=== PATIENT | female | born 1970 | race Caucasian/White ===

== ENCOUNTER 2022-11-22 14:19 | Outpatient (CLI) | payer BC, SELFPAY | END 2022-11-22 14:20 | disposition home or self-care (01) | LOC: FRMREF 14:20 | PROVIDERS: PCP Physician Assistant Medical; Visit Provider Physician Assistant Medical | DX: N92.0 Excessive and frequent menstruation with regular cycle (principal); E05.90 Thyrotoxicosis, unspecified without thyrotoxic crisis or storm; Z01.818 Encounter for other preprocedural examination | CPT/HCPCS: 84443 ==

== ENCOUNTER 2022-12-12 06:08 | Day surgery (SDC) | payer BC, SELFPAY ==
[2022-12-12] MEDS: LACTATED RINGERS 1000 ML 1,000 ML 100 ML IV (06:20)
[2022-12-12 06:37] LABS: Ur HCG Qualitative* Negative (Negative)
[2022-12-12 06:39] VITALS: BP 117/81; PULSE 71; RESP 16; TEMP 37; O2SAT 98
[2022-12-12 06:41] VITALS: BMI 27.9
[2022-12-12] MEDS: LIDOCAINE 1% MDV 10 ML INJECTION (08:00)
[2022-12-12] MEDS: BUPIVACAINE 0.25% 30 ML 10 ML INJECTION (08:00)
--- NOTE | 2022-12-12 08:24 | W.PM.GYNPROC ---
Procedure Note Date of procedure: 12/12/22 Pre-op diagnosis: Menorrhagia with irregular cycle Post-op diagnosis: same Procedure: Hysteroscopy D&C Jazmyn endometrial ablation Anesthesia: MAC and local (Paracervical block) Complications: None Surgeon: Soniya Garcia MD Estimated blood loss (mL): 5 Urine Output (mL): 200 Pathology: specimen obtained, sent to pathology (Endometrial curettings) Condition: stable Disposition: same day Findings: Small uterine cavity. Thin endometrial lining. Procedure Description: After obtaining informed consent, the patient was taken to the operating room where she received monitored anesthesia care. She was prepared and draped in the normal sterile fashion, in the dorsal lithotomy position. An open-sided bivalve speculum was introduced into the vagina and the cervix visualized. The anterior lip of the cervix was grasped with a single-tooth tenaculum for traction. A paracervical block was then administered using a total of 20 mL of a 50/50 mixture of 0.25% Marcaine and 1% lidocaine plain. The uterus was gently sounded. Sound length was 6.5 cm. The cervix length was determined to be 2.5 cm using Hegar dilators, yielding a uterine cavity length of 4 cm. The cervix was gently dilated to a #6 Hegar dilator. A hysteroscope was then advanced under direct visualization through the cervix into the uterine cavity. Sterile normal saline was used as distending medium. The uterine cavity was carefully inspected with the findings noted above. The hysteroscope was then removed. The endometrial lining was then sharply curetted. The Jazmyn device was then set to a cavity length of 4 cm, inserted through the cervical os into the uterine cavity to the level of the fundus, and deployed. The device was sealed against the cervix. The array was found to be incompletely deployed, presumably due to the small uterine cavity size. The array was slightly manipulated, and still the line on the device indicated that the device was not fully deployed. I removed the device, and then reinserted it and sealed it again against the cervix. I checked with the device territory sales representative and enrollment management coordinator, and was informed that the device would still be safe in functional to use for the ablation. The safety checks were then passed x2 and the 2-minute treatment cycle initiated. During the treatment cycle, I could visualize the distal aspect of the cervical sealing balloon. Following completion of the treatment cycle, the Jazmyn device was removed. The hysteroscope was advanced again into the uterine cavity and the uterine cavity inspected. A good ablation was noted from the internal os to fundus and to the cornua bilaterally. There was some ablation of the endocervix slightly distal to the internal cervical os. Pictures were taken for documentation purposes. The hysteroscope was removed. The tenaculum was removed. All instruments were then removed. Toradol 30 mg IV was administered by the MANAGER CARDIAC. The patient tolerated the procedure well. Sponge, lap, needle, and instrument counts reported as correct x2. Postoperative debrief was done, confirming the procedure done and the pathology specimen to be sent. The patient was taken to the recovery room awake in a stable condition.
[2022-12-12 08:29] VITALS: BP 112/70; PULSE 68; RESP 16; TEMP 36.6; O2SAT 97
--- NOTE | 2022-12-12 08:29 | W.ANESCHARGE ---
Anesthesia Charges Start Date/Time Anesthesia Start Date: 12/12/22 Anesthesia Start Time: 07:35 Stop Date/Time Anesthesia Stop Date: 12/12/22 Anesthesia Stop Time: 08:28
--- NOTE | 2022-12-12 08:41 | W.ANESCHARGE ---
Anesthesia Charges Start Date/Time Anesthesia Start Date: 12/12/22 Anesthesia Start Time: 07:35 Stop Date/Time Anesthesia Stop Date: 12/12/22 Anesthesia Stop Time: 08:28
[2022-12-12 09:01] VITALS: BP 124/78; PULSE 72; RESP 16; TEMP 36.8; O2SAT 100
== END 2022-12-12 09:17 | disposition home or self-care (01) ==
PROVIDERS: PCP Physician Assistant Medical; Visit Provider Obstetrics & Gynecology
PROC: 0UF98ZZ Fragmentation in Uterus, Via Natural or Artificial Opening Endoscopic (ICD-10-PCS; CPT 58563; principal; 2022-12-12 07:15)
DX: N92.1 Excessive and frequent menstruation with irregular cycle (principal); N84.0 Polyp of corpus uteri
CPT/HCPCS: 58563; 81025; 88305; 952; J0665; J1100; J1885; J2250; J2405; J2704; J3010; J7120

== ENCOUNTER 2023-10-21 14:14 | Emergency (ER) | payer BC, SELFPAY ==
[2023-10-21] VITALS (8 sets, daily range): BP systolic 116–148; BP diastolic 69–78; PULSE 73–125; RESP 16; TEMP 36.1; O2SAT 97–99; BMI 29.8
[2023-10-21] MEDS: 0.9 % SODIUM CHLORIDE 1000 ml 1,000 ML IV (14:50)
[2023-10-21] MEDS: EPINEPHrine 0.3 MG PEN IM (14:50)
[2023-10-21] MEDS: METHYLPREDNISOLONE SOD SUCC 62.5 MG/ML (125) 125 MG IVP (14:52)
[2023-10-21] MEDS: FAMOTIDINE 10 MG/ML inj 20 MG IVP (14:55)
--- OUTSIDE RECORDS SUMMARY | 2023-10-21 15:01 | XMS_ITS | Clinical Summary ---
Author Organization [facility] Address [address] [place] [address] Care Team Providers Care Animal Breeder Name Role Phone Mariangel Dickens PA-C Primary Care Provi chato Allergies Active Allergy Reactions Criticality Noted Date Comments Sulfa Antibiotics 03/25/2006 Medications Medication Sig Dispensed Refills Start Date End Date Status cholecalciferol (VITAMIN D) 1000 UNIT tablet Take 1 tablet (1,000 Units) by mouth daily 100 tablet 3 01/18/2015 Active Probiotic Product (ACIDOPHILUS PROBIOTIC BLEND) CAPS 01/18/2015 Act indio magnesium oxide (MAG-OX) 400 (241.3 MG) MG tablet Take 1 tablet (400 mg) by mouth daily 60 tablet 3 01/18/2015 Active fluticasone (FLONASE) 50 MCG/ACT nasal sprayIndications:Othe r diseases of nasal cavity and sinuses(478.19) Rena Lara 1-2 sprays into both nostrils daily 16 g 7 10/01/2015 Active Ibuprofen (ADVIL PO) Acti ve loratadine-pseudoePHE Drine (CLARITIN-D 24-HOUR) 10-240 MG per tablet Take 1 tablet by mouth daily Active loratadine (CLARITIN) 10 MG tablet Take 10 mg by mouth daily Active norethindrone-ethinyl estradiol (03/17) 1-20 MG-MCG per tabletIndications:Enc ounter for initial prescription of contraceptive pills Take 1 tablet by mouth daily 90 tablet 3 09/01/2016 Active Active Problems Patient Care Coordination No te Formatting of this note migh t be different from the original. [email or web address] Problem Noted Date Diagnosed Date Headache 06/08/2011 Overview: Problem list name updated by automated process. Provider to review and confirm Problem list name updated by automated process. Provider to review Contraception 04/05/2011 Generalized anxiety disorder 03/07/2011 Anxiety 03/07/2011 CARDIOVASCULAR SCREENING; LDL GOAL LESS THAN 160 02/18/2010 Overview: Collins 10-year CHD Risk Score: 1% (0 Total Points) Values used to calculate score: Age: 39 years -- Points: 0 Total Cholesterol: N/A mg/dL -- Points: 0 HDL Cholesterol: N/A mg/dL -- Points: 0 Systolic BP (untreated): 90 mmHg -- Points: 0 Rosacea 02/18/2010 Allergic rhinitis 03/07/2007 Overview: Problem list name updated by automated process. Provider to review Resolved Problems Problem Noted Date Diagnosed Date Resolved Date Cervical radiculopathy 11/15/201412/31 Left shoulder pain 11/15/2014 5 Family History Relation Status Comments Brother 1 Alive Brother 2 Alive Brother 3 Alive Father Alive Mother Alive Sister Alive Son 1 Alive Son 2 Alive Son 3 Alive Son 4 Alive Social History Tobacco Use Types Packs/Day Years Used Date Smoking Tobacco: Never Smokeless Tobacco: Never Tobacco Cessation:Counseling Given: No Alcohol Use Standard Drinks/Week Comments Yes 0 (1 standard drink = 0.6 oz pur e alcohol) rarely Adolescent Education Answer Date Record ed Getting School Help Needed Not on file 12/03 Sex and Gender Information Value Date Recorded Sex Assigned at Not on file Gender Identity Not on file Sexual Orientation Not on file Last Filed Vital Signs Vital Sign Reading Time Taken Comments Blood Pressure 98/76 09/01/2016 1:56 PM CDT Pulse 81 09/01/2016 1:56 PM CDT Temperature 36.8 ??C (98.2 ??F) 09/01/2016 1:56 PM CD T Respiratory Rate 14 12/21/2017 11:36 AM CDT Oxygen Saturation 100% 09/01/2016 1:56 PM CDT Inhaled Oxygen Concentration - - Weight 79.4 kg (175 lb) 12/21/2017 11:36 AM CDT Height 170.2 cm (5' 7) 12/21/2017 11:36 AM CDT Body Mass Index 27.41 12/21/2017 11:36 AM CDT Plan of Treatment Not on file Care Teams Animal Breeder Relationship Specialty Start Date End Date Mariangel Dickens PA-C PCP - General Physician Rehabilitation Center Manager 01/18/15
--- OUTSIDE RECORDS SUMMARY | 2023-10-21 15:01 | XMS_ITS | Encounter Summary ---
Author Organization [facility] Address [address] [place] [address] Care Team Providers Care Dairy Store Manager Name Role Phone Te Jorge Primary Care Provider Unavailabl e Encounter Details Date Type Department Care Team (Latest Contact Info) Description 02/27/1994 [place] [address] [place] [address] Social History Tobacco Use Types Packs/Day Years Used Date Smoking Tobacco: Never Assessed Sex and Gender Information Value Date Recorded Sex Assigned at Not on file Gender Identity Not on file Sexual Orientation Not on file documented as of this encounter Plan of Treatment Not on file documented as of this encounter Visit Diagnoses Not on filedocumented in this encounter Care Teams Dairy Store Manager Relationship Specialty Start Date End Date Te Jorge PCP - General 05/29/10 documented as of this encounter
--- OUTSIDE RECORDS SUMMARY | 2023-10-21 15:01 | XMS_ITS | Encounter Summary ---
Author Organization [facility] Address [address] [place] [address]. [place] [address] Care Team Providers Care Home Day Care Provider Name Role Phone Min Napoles PA-C Primary Care Provider OestrMariangel aguilar PA-C Primary Care Provi chato Mariangel Dickens PA-C Unavailable [phone] Mariangel Dickens PA-C Unavailable [phone] Reason for Visit * Reason Onset Date Comments MyChart Communication 02/15/2012 Encounter Details Date Type Department Care Team (Latest Contact Info) Description 02/15/2012 MyC Medical Advice [address] [address] Min Napoles PA-C [address] [address] MyChart Communication Social History Tobacco Use Types Packs/Day Years Used Date Smoking Tobacco: Never Smokeless Tobacco: Never Alcohol Use Standard Drinks/Week Comments Yes 0 (1 standard drink = 0.6 oz pur e alcohol) Sex and Gender Information Value Date Recorded Sex Assigned at Not on file Gender Identity Not on file Sexual Orientation Not on file documented as of this encounter Miscellaneous Notes * Telephone Encounter - Jessica Cartwright - 02/21/2012 1:25 PM CST Pt did start cycle, please see most recent SPEEDELO message. Message to Ashley Dony TOMASZ Cartwright, RN GROWER * Telephone Encounter - Soraya Washington - 02/16/2012 9:36 AM CST Reviewed MY Chart with clinic provider. Defer to PCP for BC restart. Message handled by Nurse Triage with [facility] - provider name: Parag Washington RN. . GROWER documented in this encounter Plan of Treatment Not on file documented as of this encounter Visit Diagnoses Not on filedocumented in this encounter Care Teams Home Day Care Provider Relationship Specialty Start Date End Date Min Napoles PA-C [address] [address] PCP - General Family Practice 10/18/10 04/03/13 Mariangel Dickens PA-C [address] [address] PCP - General Physician Pipe Washer 01/18/15 Mariangel Dickens PA-C [address] [place] [address] PCP - Assigned PCP 09/03/16 04/30/18 Mariangel Dickens PA-C [address] [place] [address] Assigned PCP 09/03/16 09/06/19 documented as of this encounter
--- OUTSIDE RECORDS SUMMARY | 2023-10-21 15:01 | XMS_ITS | Encounter Summary ---
Author Organization [facility] Address [address] [place] [address] Care Team Providers Care Paralegals Name Role Phone Te Jorge Primary Care Provider Unavailabl e Encounter Details Date Type Department Care Team (Latest Contact Info) Description 09/13/1995 [place] [address] [place] [address] Social History Tobacco Use Types Packs/Day Years Used Date Smoking Tobacco: Never Assessed Sex and Gender Information Value Date Recorded Sex Assigned at Not on file Gender Identity Not on file Sexual Orientation Not on file documented as of this encounter Plan of Treatment Not on file documented as of this encounter Visit Diagnoses Not on filedocumented in this encounter Care Teams Paralegals Relationship Specialty Start Date End Date Te Jorge PCP - General 05/29/10 documented as of this encounter
--- OUTSIDE RECORDS SUMMARY | 2023-10-21 15:01 | XMS_ITS | Referral Summary ---
Author Organization [facility] Address [address] [place] [address] Care Team Providers Care Chemical Process Analyst Name Role Phone Mariangel Dickens PA-C Primary [...] r diseases of nasal cavity and sinuses(478.19) [place] 1-2 sprays into both nostrils daily 16 [...] migh t be different from the original. [email or web address] Problem Noted Date Diagnosed Date Headache 06/08/2011 Overview: Problem list name updated by automated process. Provider to review and confirm Problem list name updated by automated process. Provider to review Contraception 04/05/2011 Generalized anxiety disorder 03/07/2011 Anxiety 03/07/2011 CARDIOVASCULAR SCREENING; LDL GOAL LESS THAN 160 02/18/2010 Overview: Calvin 10-year CHD Risk Score: 1% (0 Total [...] radiculopathy 11/15/201412/31 Left shoulder pain 11/15/2014 5 Social History Tobacco Use Types Packs/Day Years [...] of Treatment Not on file Care Teams Chemical Process Analyst Relationship Specialty Start Date End Date Mariangel Dickens PA-C PCP - General Physician Instrument Assembler 01/18/15
--- OUTSIDE RECORDS SUMMARY | 2023-10-21 15:01 | XMS_ITS | Encounter Summary ---
Author Organization [facility] Address [address] [place] [address]. [place] [address] Care Team Providers Care Stone Polisher Hand Name Role Phone Min Napoles PA-C Primary Care Provider Mariangel Dickens PA-C Primary Care Provi chato Mariangel Dickens PA-C Unavailable [phone] Mariangel Dickens PA-C Unavailable [phone] Encounter Details Date Type Department Care Team (Late st Contact Info) Description 02/12/2012 MyC Medical Advice Initial Department Roger Balbuena Social History Tobacco Use Types Packs/Day Years [...] on filedocumented in this encounter Care Teams Stone Polisher Hand Relationship Specialty Start Date End Date Min Napoles PA-C [address] [address] PCP - General Family Practice 10/18/10 2 Mariangel Dickens PA-C [address] [address] PCP - General Physician Tooth Cutter Contact Wheel 01/18/15 Mariangel Dickens PA-C [address] [facility] [address] [place] [address] PCP - Assigned PCP 09/03/16 04/30/18 Mariangel Dickens PA-C [address] [facility] [address] [place] [address] Assigned PCP 09/03/16 09/06/19 documented as of this encounter
--- OUTSIDE RECORDS SUMMARY | 2023-10-21 15:01 | XMS_ITS | Encounter Summary ---
Author Organization [facility] Address [address] [place] [address] Care Team Providers Care Inside Account Executive Name Role Phone Min Napoles PA-C Primary Care Provider Mariangel Dickens PA-C Primary Care Provi chato Mariangel Dickens PA-C Unavailable [phone] Mariangel Dickens PA-C Unavailable [phone] Encounter Details Date Type Department Care Team (Late st Contact Info) Description 10/31/[address] [address] [facility] Social History Tobacco Use Types Packs/Day Years [...] on filedocumented in this encounter Care Teams Inside Account Executive Relationship Specialty Start Date End Date Min Napoles PA-C [address] [address] PCP - General Family Practice 10/18/10 04/03/13 Mariangel Dickens PA-C [address] [address] PCP - General Physician Javascript Software Engineer 01/18/15 Mariangel Dickens PA-C [address] [facility] [address] [place] [address] PCP - Assigned PCP 09/03/16 04/30/18 Mariangel Dickens PA-C [address] [facility] [address] [place] [address] Assigned PCP 09/03/16 09/06/19 documented as of this encounter
--- OUTSIDE RECORDS SUMMARY | 2023-10-21 15:01 | XMS_ITS | Clinical Summary ---
Author Organization [facility] Address [place], [place] [address] Care Team Providers Care Molecular Physicist Name Role Phone Clinic, No Pcp Or Primary Care Provider Unavaila ble Allergies Active Allergy Reactions Criticality Noted Date Comments Sulfa (Sulfonamide Antibiotics) Nausea And Vomiting 12/16/2016 Medications No known medications Active Problems Problem Noted Date Diagnosed Date Anxiety 03/07/2011 Allergic rhinitis 03/07/2007 Overview: Overview: Problem list name updated by automated process. Provider to review Social History Tobacco Use Types Packs/Day Years Used Date Smoking Tobacco: Former Smokeless Tobacco: Never Alcohol Use Standard Drinks/Week Comments No 0 (1 standard drink = 0.6 oz pur e alcohol) Sex and Gender Information Value Date Recorded Sex Assigned at Not on file Gender Identity Not on file Sexual Orientation Not on file Obstetrics History Last Filed Vital Signs Vital Sign Reading Time Taken Comments Blood Pressure 126/80 01/15/2017 11:36 AM PERIOPERATIVE MANAGER Pulse 76 01/15/2017 11:36 AM PERIOPERATIVE MANAGER Temperature 37.2 ??C (98.9 ??F) 12/16/2016 3:41 PM CD T Respiratory Rate 18 12/16/2016 3:41 PM CDT Oxygen Saturation 99% 12/16/2016 3:41 PM CDT RA Inhaled Oxygen Concentration - - Weight 79 kg (174 lb 1.6 oz) 01/15/2017 11:36 AM PERIOPERATIVE MANAGER Height 170.2 cm (5' 7) 01/15/2017 11:36 AM PERIOPERATIVE MANAGER Body Mass Index 27.27 01/15/2017 11:36 AM PERIOPERATIVE MANAGER Plan of Treatment Health Maintenance Due Date Last Done Comments Tdap 1980 Depression screening for age 12+ 1981 Tetanus booster 1989 Pap test for age 21-65 1990 Colonoscopy through age 75 2014 Lipids for age 45-75 2014 Mammogram for age 45-75 2014 BMI (ht and wt on same day) for age 18+ 01/15/2018 01/15/2017, 12/16/2016 Zoster (shingles) series for age 50+ (1 of 2) 10/21/2019 COVID-19 vaccine series (2022-24 season) 2022 Influenza for age 50-64 10/28/2023 HIV for age 15-65 Completed 12/16/2016 Hepatitis C screening for ag e 18-79 Completed 12/16/2016 Pneumococcal series for age 6-64 Aged Out No longer eligible b ased on patient's age to complete this topic Procedures Procedure Name Priority Date/Time Associated Diagnosis Comments ANTI HIV 1/2 Patient wait 12/16/2016 4:35 PM CDT Fever, unspecified fever cause ANTI HCV Patient wait 12/16/2016 4:35 PM CDT Fever, unspecified fever cause from Last 3 Months or Most Recently Relevant to Health Maintenance Results * ANTI HCV (12/16/2016 4:35 PM CDT) [facility] HEPATITIS C ANTIBODY Non-Reacti ve Non-Reacti ve 12/17/2016 6:54 PM CDT [facility] Blood BLOOD SPECIMEN / Unknown Venipuncture / Unknown 12/16/2016 4:35 PM CDT 12/16/2016 4:35 PM CDT Narrative [facility] - 12/17/2016 6:54 PM CDT Antibodies to HCV not detected; does not exclude the possibility of exposure to HCV. Shawnee Leroy MD SEND OUTS [facility] [address] [place] [address], [place] * ANTI HIV 1/2 (12/16/2016 4:35 PM CDT) HIV-1/HIV-2 ANTIBODY Non-Reacti ve Non-Reacti ve 12/17/2016 6:58 PM CDT [facility] Blood BLOOD SPECIMEN / Unknown Venipuncture / Unknown 12/16/2016 4:35 PM CDT 12/16/2016 4:35 PM CDT Narrative [facility] - 12/17/2016 6:58 PM CDT HIV-1 p24 and HIV-1/HIV-2 Ab not detected Shawnee Leroy MD SEND OUTS [facility] [address] [place] [address], from Last 3 Months or Most Recently Relevant to Health Maintenance Care Teams Molecular Physicist Relationship Specialty Start Date End Date Clinic, No Pcp Or . PCP - General 12/16/16
--- OUTSIDE RECORDS SUMMARY | 2023-10-21 15:01 | XMS_ITS | Encounter Summary ---
Author Organization [facility] Address [address] [place] [address] Care Team Providers Care Returning Officer Name Role Phone Te Jorge Primary Care Provider Unavailabl e Encounter Details Date Type Department Care Team (Latest Contact Info) Description 06/20/1996 Orders Only Talya Rosado Social History Tobacco Use Types Packs/Day Years Used Date Smoking Tobacco: Never Assessed Sex and Gender Information Value Date Recorded Sex Assigned at Not on file Gender Identity Not on file Sexual Orientation Not on file documented as of this encounter Plan of Treatment Not on file documented as of this encounter Visit Diagnoses Not on filedocumented in this encounter Care Teams Returning Officer Relationship Specialty Start Date End Date Te Jorge PCP - General 05/29/10 documented as of this encounter
--- OUTSIDE RECORDS SUMMARY | 2023-10-21 15:01 | XMS_ITS | Encounter Summary ---
Author Organization [facility] Address [address] [place] [address] Care Team Providers Care Numerical Control Tool Programmer Name Role Phone Te Jorge Primary Care Provider Unavailabl e Encounter Details Date Type Department Care Team (Latest Contact Info) Description 07/21/1995 Orders Only Javier Simmons Social History Tobacco Use Types Packs/Day Years Used Date Smoking Tobacco: Never Assessed Sex and Gender Information Value Date Recorded Sex Assigned at Not on file Gender Identity Not on file Sexual Orientation Not on file documented as of this encounter Plan of Treatment Not on file documented as of this encounter Visit Diagnoses Not on filedocumented in this encounter Care Teams Numerical Control Tool Programmer Relationship Specialty Start Date End Date Te Jorge PCP - General 05/29/10 documented as of this encounter
--- OUTSIDE RECORDS SUMMARY | 2023-10-21 15:01 | XMS_ITS | Encounter Summary ---
Author Organization [facility] Address [address] [place] [address] Care Team Providers Care Blood Bank Booking Clerk Name Role Phone Te Jorge Primary Care Provider Unavailabl e Encounter Details Date Type Department Care Team (Latest Contact Info) Description 03/13/1994 Orders Only Valery Lester MD Social History Tobacco Use Types Packs/Day Years Used Date Smoking Tobacco: Never Assessed Sex and Gender Information Value Date Recorded Sex Assigned at Not on file Gender Identity Not on file Sexual Orientation Not on file documented as of this encounter Plan of Treatment Not on file documented as of this encounter Visit Diagnoses Not on filedocumented in this encounter Care Teams Blood Bank Booking Clerk Relationship Specialty Start Date End Date Te Jorge PCP - General 05/29/10 documented as of this encounter
--- OUTSIDE RECORDS SUMMARY | 2023-10-21 15:01 | XMS_ITS | Encounter Summary ---
Author Organization [facility] Address [address] [place] [address] Care Team Providers Care Vice President Of Academic Affairs Name Role Phone Te Jorge Primary Care Provider Unavailabl e Encounter Details Date Type Department Care Team (Latest Contact Info) Description 02/08/1996 Orders Only Taylor Carvajal MD [address] [facility] [address] [place] [address] Social History Tobacco Use Types Packs/Day Years Used Date Smoking Tobacco: Never Assessed Sex and Gender Information Value Date Recorded Sex Assigned at Not on file Gender Identity Not on file Sexual Orientation Not on file documented as of this encounter Plan of Treatment Not on file documented as of this encounter Visit Diagnoses Not on filedocumented in this encounter Care Teams Vice President Of Academic Affairs Relationship Specialty Start Date End Date Te Jorge PCP - General 05/29/10 documented as of this encounter
--- OUTSIDE RECORDS SUMMARY | 2023-10-21 15:01 | XMS_ITS | Encounter Summary ---
Author Organization [facility] Address [address] [place] [address]. [place] [address] Care Team Providers Care Blending Coordinator Name Role Phone Mariangel Dickens PA-C Primary Care Provi chato Mariangel Dickens PA-C Unavailable [phone] Mariangel Dickens PA-C Unavailable [phone] Reason for Visit * Reason Onset Date Comments Refill Request 10/01/2015 fluticasone Encounter Details Date Type Department Care Team (Late st Contact Info) Description 10/01/2015 MyC Medical Advice [address] [address] Talya Tuttle MD Refill Request (fluticasone) Social History Tobacco Use Types Packs/Day Years [...] encounter Miscellaneous Notes * Telephone Encounter - Toyin Mock RN - 10/01/2015 2:12 PM CDT fluticasone Last Written Prescription Date: 03/02/2014 Last Fill Quantity: 16 g, # refills: 7 Last Office Visit with [facility] or [facility] prescribing provider: 05/2015 Prescription approved per FM Refill Protocol. Toyin Mock RN documented in this encounter Plan of Treatment Not on file documented as of this encounter Visit Diagnoses Diagnosis Other diseases of nasal cavity and sinuses(478.19)- Primary Other diseases of nasal cavity and sinuses documented in this encounter Care Teams Blending Coordinator Relationship Specialty Start Date End Date Mariangel Dickens PA-C PCP - General Physician Caregiver Services Home 01/18/15 Mariangel Dickens PA-C [address] [place] [address] PCP - Assigned PCP 09/03/16 04/30/18 Mariangel Dickens PA-C [address] [place] [address] Assigned PCP 09/03/16 09/06/19 documented as of this encounter
--- OUTSIDE RECORDS SUMMARY | 2023-10-21 15:01 | XMS_ITS | Encounter Summary ---
Author Organization [facility] Address [address] [place] [address]. [place] [address] Care Team Providers Care Neon Tube Bender Name Role Phone Min Napoles PA-C Primary Care Provider Mariangel Dickens PA-C Primary Care Provi chato Mariangel Dickens PA-C Unavailable + [phone] Mariangel Dickens PA-C Unavailable + [phone] Encounter Details Date Type Department Care Team (Late st Contact Info) Description 09/12/2012 My[facility] Medical Advice [address] [address] Min Napoles PA-C [address] [address] Social History Tobacco Use Types Packs/Day Years [...] on filedocumented in this encounter Care Teams Neon Tube Bender Relationship Specialty Start Date End Date Min Napoles PA-C [place] [id number] PCP - General Family Practice 10/18/10 04/03/13 Mariangel Dickens PA-C [address] [address] PCP - General Physician Community Development Specialist 01/18/15 Mariangel Dickens PA-C [address] [facility] [address] [place] [address] PCP - Assigned PCP 09/03/16 04/30/18 Mariangel Dickens PA-C [address] [facility] [address] [place], [place] [id number] Assigned PCP 09/03/16 09/06/19 documented as of this encounter
--- OUTSIDE RECORDS SUMMARY | 2023-10-21 15:01 | XMS_ITS | Encounter Summary ---
Author Organization [facility] Address [address] [place] [address] Care Team Providers Care Practical Nursing Faculty Name Role Phone Te Jorge Primary Care Provider Unavailabl e Encounter Details Date Type Department Care Team (Latest Contact Info) Description 11/25/1996 Orders Only Dixie Bautista MD Social History Tobacco Use Types Packs/Day Years Used Date Smoking Tobacco: Never Assessed Sex and Gender Information Value Date Recorded Sex Assigned at Not on file Gender Identity Not on file Sexual Orientation Not on file documented as of this encounter Plan of Treatment Not on file documented as of this encounter Visit Diagnoses Not on filedocumented in this encounter Care Teams Practical Nursing Faculty Relationship Specialty Start Date End Date Te Jorge PCP - General 05/29/10 documented as of this encounter
--- OUTSIDE RECORDS SUMMARY | 2023-10-21 15:01 | XMS_ITS | Encounter Summary ---
Author Organization [facility] Address [address] [place] [address] Care Team Providers Care Stone Hand Name Role Phone Te Jorge Primary Care Provider Unavailabl e Encounter Details Date Type Department Care Team (Latest Contact Info) Description 06/12/1994 Orders Only Tanja Auguste Social History Tobacco Use Types Packs/Day Years Used Date Smoking Tobacco: Never Assessed Sex and Gender Information Value Date Recorded Sex Assigned at Not on file Gender Identity Not on file Sexual Orientation Not on file documented as of this encounter Plan of Treatment Not on file documented as of this encounter Visit Diagnoses Not on filedocumented in this encounter Care Teams Stone Hand Relationship Specialty Start Date End Date Te Jorge PCP - General 05/29/10 documented as of this encounter
--- OUTSIDE RECORDS SUMMARY | 2023-10-21 15:01 | XMS_ITS | Clinical Summary ---
[facility] Organization [facility] Address [address] [place] [address] Care Team Providers Care Stone Grader Name Role Phone Te Jorge Primary Care Provider Unavailabl e Source Comments You are receiving this document as you are listed as the primary care provider,follow-up provider, or the patient has been referred to you for consultation.This is in compliance with the Medicare and[facility] EHR Incentive Program,which states Providers who transition their patient to another setting of careor provider of care or refers their patient to another provider of care shouldprovide summary care record for each transition of care or referral. [employer] Allergies Active Allergy Reactions Criticality Noted Date Comments Sulfa Antibiotics 04/02/2000 PN: LW Reaction: indigestion Medications Medication Sig Dispensed Refills Start Date End Date Status ascorbic acid (AKA VITAMIN C) 500 MG tablet Take 1 Tablet (500 mg) by mouth. 07/13/2004 Active Multiple Vitamins-Minerals (MULTIVITAMIN OR) Take 1 tablet by mouth daily (every 24 hours). 100 13 07/13/2004 Active cholecalciferol (VITAMIND3) 2000 units tabletIndications:t elsi 5,00 daily Take 1 Tablet (2,000 Units) by mouth daily. Indications: take 5,00 daily Active desonide (DESOWEN) 0.05 % cream Apply to affected area face 1-2 times daily prn, mix half and half with ketoconazole 15 g 3 04/10/2018 Active Additional Information Patient not taking.Reported on 08/10/2022 ketoconazole (NIZORAL) 2 % cream Apply to affected area face 1-2 times daily, mix half and half with desonide 15 g 3 04/10/2018 Active Additional Information Patient not taking.Reported on 08/10/2022 Immunizations Name Administration Dates Next Due Td 01/03/1988 Varicella 07/24/1996(Deferred: Immune by [place] [facility]) Social History Tobacco Use Types Packs/Day Years Used Date Smoking Tobacco: Never Assessed Sex and Gender Information Value Date Recorded Sex Assigned at Not on file Gender Identity Not on file Sexual Orientation Not on file Last Filed Vital Signs Vital Sign Reading Time Taken Comments Blood Pressure - - Pulse - - Temperature 36.3 ??C (97.3 ??F) 08/10/2022 9:47 AM CD T Respiratory Rate - - Oxygen Saturation - - Inhaled Oxygen Concentration - - Weight 78.9 kg (174 lb) 08/10/2022 9:47 AM CDT Height 171.5 cm (5' 7.5) 08/10/2022 9:47 AM CDT Body Mass Index 26.85 08/10/2022 9:47 AM CDT Plan of Treatment Health Maintenance Due Date Last Done Comments Colon Cancer Screening Plan Due 1970 Hep C Screening (Preventive Services) 1970 Mammogram 1969 DTaP/Tdap/Td (2 - Tdap) 01/04/1988 01/03/1988 HepB (1) 1988 Adult Preventive Visit 07/01/1995 06/30/1994 Cervical Cancer Screening Due 11/05/2003 11/04/2003, 05/13/2001, 08/22/1999, Additional history exists Cholesterol 2014 05/13/2001 Zoster/Shingles (1 of 2) 10/21/2019 COVID-19 Vaccine ( - season) 2022 Influenza (#1) 2023 HIV Screening (Preventive Services) Completed 11/04/2003, 08/22/1999 HepA Aged Out No longer eligi ble based on patient's age to complete this topic Hib Aged Out No longer eligi ble based on patient's age to complete this topic IPV (Polio) Aged Out No longer eligi ble based on patient's age to complete this topic MCV4 Aged Out No longer eligi ble based on patient's age to complete this topic Pneumococcal Aged Out No longer eligi ble based on patient's age to complete this topic Procedures Procedure Name Priority Date/Time Associated Diagnosis Comments ANATOMICAL PATH LIQUID BASED Routine 11/04/2003 2:44 PM CDT HIV ANTIBODY Routine 11/04/2003 12:40 PM CDT CHOLESTEROL, TOTAL AND HDL Routine 05/13/2001 4:31 PM MARKET RESEARCH ASSISTANT from Last 3 Months or Most Recently Relevant to Health Maintenance Results * Pap Smear (11/04/2003 2:44 PM CDT) PAP Smear Liquid Based SEE TEXT No normal range HP CONVERSION Comment: Patient: DANY BRICE ? CERVICAL CYTOLOGY REPORT Pathology # ??[id number] ?Date Obtained: [id number] ? Date Received: [id number] CYTOLOGIC IMPRESSION: Negative for intraepithelial lesion or malignancy. Fungal organisms identified. ? ADDITIONAL DATA LMP: ?10-30-03,PREG CLINICAL HIST LIQUID BASED PAP CERVICAL SPECIMEN ADEQUACY: ?? Satisfactory. ENDOCERVICAL CELLS: ??Present. Verified 11/13/03 by: ??JYO ?(electronic signature) 11/04/2003 2:44 PM CDT Gracy Gutierrez APRN, [facility] HP CONVERSION * HIV Antibody (11/04/2003 12:40 PM CDT) HIV 1/HIV 2 Non Reac Non Reac HP CONVERSION 11/04/2003 12:4 0 PM CDT Gracy Gutierrez APRN, [facility] HP CONVERSION * (ABNORMAL) Cholesterol, Total and HDL (05/13/2001 4:31 PM MARKET RESEARCH ASSISTANT) Cholesterol/HDL Ratio Screen 2.3 No normal range HP CONVERSION Cholesterol 112(LL) 125 - 199 mg/dL HP CONVERSION HDL Cholesterol 49 40 - 60 mg/dL HP CONVERSION 05/13/2001 4:31 PM MARKET RESEARCH ASSISTANT Dany Huizar APRN, [facility] Performing Organization Address [facility] Co de Phone Number HP CONVERSION from Last 3 Months or Most Recently Relevant to Health Maintenance Care Teams Stone Grader Relationship Specialty Start Date End Date Te Jorge PCP - General 05/29/10
--- OUTSIDE RECORDS SUMMARY | 2023-10-21 15:01 | XMS_ITS | Encounter Summary ---
Author Organization [employer] Address [address] [place] [address] Care Team Providers Care Manager Science Name Role Phone Te Jorge Primary Care Provider Unavailabl e Encounter Details Date Type Department Care Team (Latest Contact Info) Description 06/06/1995 Orders Only Lucia Santiago, ULTRASOUND SONOGRAPHER, PORTFOLIO SPECIALIST Social History Tobacco Use Types Packs/Day Years Used Date Smoking Tobacco: Never Assessed Sex and Gender Information Value Date Recorded Sex Assigned at Not on file Gender Identity Not on file Sexual Orientation Not on file documented as of this encounter Plan of Treatment Not on file documented as of this encounter Visit Diagnoses Not on filedocumented in this encounter Care Teams Manager Science Relationship Specialty Start Date End Date Te Jorge PCP - General 05/29/10 documented as of this encounter
--- OUTSIDE RECORDS SUMMARY | 2023-10-21 15:01 | XMS_ITS | Encounter Summary ---
Author Organization [facility] Address [address] [place] [address] Care Team Providers Care Hot Box Spotter Name Role Phone Min Napoles PA-C Primary Care Provider OestrMariangel aguilar PA-C Primary Care Provi chato Mariangel Dickens PA-C Unavailable + [phone] Mariangel Dickens PA-C Unavailable + [phone] Reason for Visit * Reason Onset Date Comments Pt. Information/instruction 03/14/2013 Encounter Details Date Type Department Care Team (Late st Contact Info) Description 03/14/2013 MyC Medical Advice [address] [address] Min Napoles PA-C [address] [address] Pt. Information/instruct ion Social History Tobacco Use Types Packs/Day Years [...] on filedocumented in this encounter Care Teams Hot Box Spotter Relationship Specialty Start Date End Date Min Napoles PA-C [address] [address] PCP - General Family Practice 10/18/10 04/03/13 Mariangel Dickens PA-C [address] [address] PCP - General Physician Aquatics Instructor 01/18/15 Mariangel Dickens PA-C [facility] [address] [place], [place] [id number] PCP - Assigned PCP 09/03/16 04/30/18 Mariangel Dickens PA-C [address] [place], [place] [id number] Assigned PCP 09/03/16 09/06/19 documented as of this encounter
--- OUTSIDE RECORDS SUMMARY | 2023-10-21 15:01 | XMS_ITS | Encounter Summary ---
Author Organization [facility] Address [address] [place] [address]. [place] [address] Care Team Providers Care Behavior Therapist Name Role Phone Min Napoles PA-C Primary Care Provider OestrMariangel aguilar PA-C Primary Care Provi chato Mariangel Dickens PA-C Unavailable + [phone] Mariangel Dickens PA-C Unavailable [phone] Reason for Visit * Reason Onset Date Comments Health Maintenance 12/04/2010 Encounter Details Date Type Department Care Team (Late st Contact Info) Description 12/04/2010 Telephone [facility] [id number] [place] [address] Min Napoles PA-C [facility] [address] [place] [address] Health Maintenance Social History Tobacco Use Types Packs/Day Years Used Date Smoking Tobacco: Never Alcohol Use Standard Drinks/Week Comments Yes 0 (1 standard drink = 0.6 oz pur e alcohol) Sex and Gender Information Value Date Recorded Sex Assigned at Not on file Gender Identity Not on file Sexual Orientation Not on file documented as of this encounter Miscellaneous Notes * Telephone Encounter - Conchis Kim - 12/04/2010 1:12 PM CDT Please abstract the following data from this visit with this patient into the appropriate field in [facility]: Pap smear done on this date: June 2010 (approximately), by this group: [facility], Results were normal documented in this encounter Plan of Treatment Not on file documented as of this encounter Visit Diagnoses Not on filedocumented in this encounter Care Teams Behavior Therapist Relationship Specialty Start Date End Date Min Napoles PA-C [address] [address] PCP - General Family Practice 10/18/10 04/03/13 Mariangel Dickens PA-C [address] [address] PCP - General Physician Microelectronics Assembler 01/18/15 Mariangel Dickens PA-C [address] [place] [address] PCP - Assigned PCP 09/03/16 04/30/18 Mariangel Dickens PA-C [address] [place] [address] Assigned PCP 09/03/16 09/06/19 documented as of this encounter
--- OUTSIDE RECORDS SUMMARY | 2023-10-21 15:01 | XMS_ITS | Encounter Summary ---
Author Organization [facility] Address [address] [place] [address] Care Team Providers Care Medical Instrument Technician Name Role Phone Te Jorge Primary Care Provider Unavailabl e Encounter Details Date Type Department Care Team (Latest Contact Info) Description 04/25/1996 Orders Only Coy Naik Social History Tobacco Use Types Packs/Day Years Used Date Smoking Tobacco: Never Assessed Sex and Gender Information Value Date Recorded Sex Assigned at Not on file Gender Identity Not on file Sexual Orientation Not on file documented as of this encounter Plan of Treatment Not on file documented as of this encounter Visit Diagnoses Not on filedocumented in this encounter Care Teams Medical Instrument Technician Relationship Specialty Start Date End Date Te Jorge PCP - General 05/29/10 documented as of this encounter
--- NOTE | 2023-10-21 15:07 | ED.GENADULT ---
HPI - General Adult General Date Seen: 10/21/23 Chief complaint: Allergic Reaction Stated complaint: allergic reaction, difficulty breathing Time Seen by Provider: 10/21/23 14:29 History of Present Illness HPI narrative: Pleasant generally healthy 53-year-old female presenting today with symptoms of allergic reaction after a insect sting. Patient did not see what insect stung her but she suspect probably a bee or wasp. She was stung on the dorsum of her right foot near the webspace between the 1st and 2nd toes or brought in our to prior to arrival. She initially noticed a burning, stinging pain in the top of her foot and was able to ride her motorcycle home. After that she developed other symptoms including and tingling and a funny feeling around her lips and face followed by development of itchy hives on her upper back, lower back, both thighs, and arms. She is now feeling a little bit of a tingling in the back of her throat and a little bit of pressure in her chest. No trouble breathing. No nausea or vomiting or abdominal pain. No lightheadedness or fainting. She has no history of asthma. No history of coronary disease. No history of hypertension. No history of other serious allergic reactions. Related Data Home Medications ?Medication ?Instructions ?Recorded ?Confirmed ascorbic acid (vitamin C) 500 mg 500 mg PO DAILY 07/13/22 02/20/23 tablet biotin 5,000 mcg chewable tablet mcg PO 07/13/22 02/20/23 cholecalciferol (vitamin D3) 125 125 mcg PO QDAY 07/13/22 02/20/23 mcg (5,000 unit) capsule zinc amino acid chelate 50 mg mg PO 07/13/22 02/20/23 tablet loratadine 5 mg-pseudoephedrine ER 1 tab PO Q12H 11/22/22 02/20/23 120 mg tablet,extended release,12hr (Claritin-D 12 Hour) Previous Rx's ?Medication ?Instructions ?Recorded erythromycin 5 mg/gram (0.5 %) eye 0.5 inch ophthalmic (eye) BID 2 02/20/23 ointment weeks #3.5 grams ketoconazole 2 % shampoo 1 applic topical 3XW #120 mL 02/20/23 ketoconazole 2 % topical cream 1 applic topical BID #60 grams 02/20/23 lidocaine 5 % topical patch 1 patch topical QDAY #15 ea 09/20/23 (Lidoderm) valacyclovir 1 gram tablet 2,000 mg (2 x 1 gram) PO Q12H #4 09/20/23 tabs cetirizine 10 mg capsule (Zyrtec) 10 mg PO DAILY #5 caps 10/21/23 diphenhydramine HCl 25 mg capsule 25 mg PO TID PRN #10 caps 10/21/23 (Benadryl) epinephrine 0.3 mg/0.3 mL 0.3 mg (0.3 mL) IM Q5-15M PRN #2 ea 10/21/23 injection, auto-injector (EpiPen) prednisone 20 mg tablet 60 mg (3 x 20 mg) PO DAILY 3 days 10/21/23 #9 tabs Allergies Allergy/AdvReac Type Severity Reaction Status Date / Time Sulfa (Sulfonamide Allergy Mild stomach Verified 02/20/23 09:56 Antibiotics) upset [facility] Medical History (Updated 10/21/23 @ 16:10 by Robert Yap MD) Seborrheic dermatitis ?L21.9 - Seborrheic dermatitis, unspecified (ICD-10) Surgical History (Updated 12/27/22 @ 20:04 by Soniya Garcia MD) Status post endometrial ablation (12/12/22) ?Z98.890 - Other specified postprocedural states (ICD-10) Scoliosis ?M41.9 - Scoliosis, unspecified (ICD-10) History of hernia repair ?Z98.890 - Other specified postprocedural states (ICD-10) ?Z87.19 - Personal history of other diseases of the digestive system (ICD-10) Family History (Updated 08/07/22 @ 16:12 by Soniya Garcia MD) Father Diabetes Mother Osteoporosis Social History (Updated 08/07/22 @ 16:14 by Soniya Garcia MD) Narrative: Owns a [employer] Highest level of school completed/degree received: high school graduate Smoking Status: Never smoker How often do you have a drink containing alcohol: monthly or less AUDIT-C Alcohol total score: 1 Non-prescribed substance use: denies use Are you now , , , , never or living with a partner: Social isolation score (0-1 are the most socially isolated patients): 1 Little interest or pleasure in doing things: not at all Feeling down, depressed, or hopeless: not at all Do you think of yourself as: straight/heterosexual Gender Identity: female Are you currently sexually active: Yes In the past 12 months, how many sex partners have you had: one Are you using contraception or practicing any form of control: Yes (Partner vasectomy) Exam Narrative: Exam Narrative: Constitutional: Appears well-developed and well-nourished. Alert. Conversant. Non toxic. HENT: Head: Atraumatic. Nose: Nose normal. Mouth/Throat: Oral mucosa is clear and moist. no trismus. Pharynx normal. Tonsils symmetric. No tonsillar enlargement, erythema, or exudate. no trismus. Phonation normal. No stridor Eyes: Conjunctivae normal. EOM normal. Pupils equal, round, and reactive to light. No scleral icterus. Neck: Normal range of motion. Neck supple. No tracheal deviation present. Cardiovascular: Normal rate, regular rhythm. No gallop. No friction rub. No murmur heard. Symmetric radial artery pulses Pulmonary/Chest: Effort normal. No stridor. No respiratory distress. No wheezes. No rales. No rhonchi . No tenderness. Abdominal: Soft. Bowel sounds normal. No distension. No mass. No tenderness. No rebound. No guarding. Musculoskeletal: RUE: Normal range of motion. No tenderness. No deformity LUE: Normal range of motion. No tenderness. No deformity RLE: Normal range of motion. No edema. No tenderness. No deformity LLE: Normal range of motion. No edema. No tenderness. No deformity Neurological: Alert and oriented to person, place, and time. Normal strength. CN II-VII intact. No sensory deficit. GCS eye subscore is 4. GCS verbal subscore is 5. GCS motor subscore is 6. Normal coordination Skin: She has hives and urticaria affecting both of her upper thighs, lower back, upper back, abnormal wall, and both upper arms. There is also a confluent erythematous slightly raised area on the dorsum of her right foot measuring about 6 x 4 cm which is the original bite site. There is no palpable or visible stinger or other foreign body . No pallor. Normal capillary refill. Psychiatric: Normal mood. Normal affect. Const: Vital Signs, click to edit/add: Vital Signs - 24 hr 10/21/23 14:23 10/21/23 14:44 10/21/23 15:00 Temperature 97.0 F L Pulse Rate 125 H 83 Pulse Rate [Pulse Oximeter] 98 Respiratory Rate 16 Blood Pressure Blood Pressure [Ri ght Upper Arm] 120/75 Pulse Oximetry 98 99 97 Oxygen Delivery Me thod Room Air 10/21/23 15:02 10/21/23 15:30 10/21/23 15:32 Temperature Pulse Rate 83 81 84 Pulse Rate [Pulse Oximeter] Respiratory Rate Blood Pressure 116/74 127/78 Blood Pressure [Ri ght Upper Arm] Pulse Oximetry 98 98 98 Oxygen Delivery Me thod 10/21/23 16:00 10/21/23 16:02 Temperature Pulse Rate 76 73 Pulse Rate [Pulse Oximeter] Respiratory Rate Blood Pressure 148/69 H Blood Pressure [Ri ght Upper Arm] Pulse Oximetry 97 99 Oxygen Delivery Me thod Course Vital Signs Vital signs: Initial Vital Signs Temperature 97.0 F L 10/21/23 14:23 Temperature Source Temporal Artery Scan 10/21/23 14:23 Pulse Rate 98 10/21/23 14:23 Pulse Rhythm Regular 10/21/23 14:23 Respiratory Rate 16 10/21/23 14:23 Blood Pressure 120/75 10/21/23 14:23 Blood Pressure Mean 90 10/21/23 14:23 Blood Pressure Position Sitting 10/21/23 14:23 Pulse Oximetry 98 10/21/23 14:23 Oxygen Delivery Method Room Air 10/21/23 14:23 Vital Signs Temperature 97.0 F L 10/21/23 14:23 Pulse Rate 98 10/21/23 14:23 Respiratory Rate 16 10/21/23 14:23 Blood Pressure 120/75 10/21/23 14:23 Pulse Oximetry 98 10/21/23 14:23 Oxygen Delivery Method Room Air 10/21/23 14:23 Temperature 97.0 F L 10/21/23 14:23 Pulse Rate 73 10/21/23 16:02 Respiratory Rate 16 10/21/23 14:23 Blood Pressure 148/69 H 10/21/23 16:02 Pulse Oximetry 99 10/21/23 16:02 Oxygen Delivery Method Room Air 10/21/23 14:23 Medications Administered Medications: Discontinued Medications Generic Name Dose Route Start Last Admin Trade Name Cherelle PRN Reason Stop Dose Admin Epinephrine HCl 0.3 mg 10/21/23 14:38 10/21/23 14:50 Epinephrine 0.3 Mg Pen IM 10/21/23 14:39 0.3 mg ONCE ONE Administration Famotidine 20 mg 10/21/23 14:38 10/21/23 14:55 Famotidine 10 Mg/Ml Inj IVP 10/21/23 14:39 20 mg ONCE ONE Administration Sodium Chloride 1,000 mls @ 1,000 mls/hr 10/21/23 14:45 10/21/23 14:50 0.9 % Sodium Chloride 1000 Ml IV 10/21/23 15:44 1,000 mls/hr .Q1H ELISE Administration Methylprednisolone Sodium Succinate 125 mg 10/21/23 14:38 10/21/23 14:52 Methylprednisolone Sod Succ 62.5 Mg/Ml (125) IVP 10/21/23 14:39 125 mg ONCE ONE Administration Medical Decision Making [facility] Narrative Medical decision making narrative: This patient presents for evaluation of allergic reaction this started as a bee sting on the dorsum of her right foot. No airway involvement, bronchospasm, GI symptoms, hypotension, but she is having fairly diffuse hives, mild chest pain, and subjective symptoms of airway involvement. Patient was treated here with medications as noted above. Symptoms improved after meds. Discussed with my oncoming partner, Dr. Sanchez. He will observe the patient until 6:00 p.m.. If she remains improved would be able to discharge home. Will send home with epipen, steroids, antihistamines. Prescriptions already sent to her pharmacy at [facility]. Potential for rebound reaction was discussed. Return of anaphylactic symptoms were discussed with patient and they were instructed to inject epi-pen and call 911 should these symptoms occur. ECG Data Attestation: I personally reviewed and interpreted this ECG as follows: Interpretation: Sinus tachycardia Rate: 108 TN: 114 QRS axis: Normal. No pathologic Q-waves ST segment/T wave: No ST segment elevation or depression. Nonspecific changes in inferior leads. QTc: 460 Discharge Plan Discharge Clinical Impression: Allergic reaction, Insect bite or sting Patient Disposition: Home, Self-Care Condition: Stable Instructions: General Allergic Reaction (ED) Additional Instructions: As we discussed, please return to the ER, or call 911, and give herself your EpiPen if you have return of severe allergic for symptoms such as swelling in your throat, change in your voice, trouble breathing, lightheadedness or fainting, or other concerning symptoms. Use the antihistamines (cetirizine during the day and/or Benadryl at night) to help treat itching and hives. Use the steroids for the next 3 days to help reduce the chance for rebound allergic reaction. Prescriptions: New Zyrtec 10 mg capsule 10 mg PO DAILY Qty: 5 0RF prednisone 20 mg tablet 60 mg PO DAILY 3 Days Qty: 9 0RF epinephrine [EpiPen] 0.3 mg/0.3 mL auto-injector 0.3 mg IM Q5-15M PRNQty: 2 0RF Rx Instructions: do not exceed 3 doses per episode diphenhydramine HCl [Benadryl] 25 mg capsule 25 mg PO TID PRNQty: 10 0RF No Action ascorbic acid (vitamin C) 500 mg tablet 500 mg PO DAILY cholecalciferol (vitamin D3) 125 mcg (5,000 unit) capsule 125 mcg PO QDAY zinc amino acid chelate 50 mg tablet PO biotin 5,000 mcg tablet,chewable PO Claritin-D 12 Hour 5-120 mg tablet extended release 12 hr 1 tab PO Q12H ketoconazole 2 % shampoo 1 applic topical 3XW Qty: 120 1RF erythromycin 5 mg/gram (0.5 %) ointment 0.5 inch ophthalmic (eye) BID 14 Days Qty: 3.5 1RF ketoconazole 2 % cream 1 applic topical BID Qty: 60 1RF Rx Instructions: Areas of seborrheic dermatitis in particular on forehead, cheeks and nose valacyclovir 1 gram tablet 2,000 mg PO Q12H Qty: 4 1RF lidocaine [Lidoderm] 5 % adhesive patch,medicated 1 patch topical QDAY Qty: 15 3RF Rx Instructions: leave on most painful area for up to 12 hrs Follow Up/Referrals: Tracy Ludwig PA-C [Primary Care Provider] - Stand Alone [facility]: [facility] Info Inst[facility]
== END 2023-10-21 16:50 | disposition home or self-care (01) ==
PROVIDERS: Emergency Provider Emergency Medicine; PCP Physician Assistant Medical
DX: S90.861A Insect bite (nonvenomous), right foot, initial encounter (principal)
CPT/HCPCS: 93005; 96372; 96374; 96375; 99282; 99283; J0171; J2919; J7030; S0028

== ENCOUNTER 2023-11-07 09:49 | Outpatient (CLI) | payer BC, SELFPAY ==
--- OUTSIDE RECORDS SUMMARY | 2023-11-12 07:00 | XMS_ITS | Clinical Summary ---
Author Organization [email or web address] Address [address] [place] [address] Care Team Providers Care Animal Killer Name Role Phone Te Jorge Primary Care Provider Unavailabl e Source Comments You are receiving this document as you are listed as the primary care provider,follow-up provider, or the patient has been referred to you for consultation.This is in compliance with the Medicare and[facility] EHR Incentive Program,which states Providers who transition their patient to another setting of careor provider of care or refers their patient to another provider of care shouldprovide summary care record for each transition of care or referral. Pili Pop Allergies Active Allergy Reactions Criticality Noted Date [...] 2) 10/21/2019 COVID-19 Vaccine ( - season) 2023 Influenza (#1) 2023 HIV Screening (Preventive Services) [...] TOTAL AND HDL Routine 05/13/2001 4:31 PM RN CORONARY CARE UNIT from Last 3 Months or Most Recently Relevant to Health Maintenance Results * Pap Smear (11/04/2003 2:44 PM CDT) PAP Smear Liquid Based SEE TEXT No normal range HP CONVERSION Comment: Patient: DANY BRICE ? CERVICAL CYTOLOGY REPORT Pathology # ??[id number] ?Date Obtained: [id number] ? Date Received: [id number] CYTOLOGIC IMPRESSION: Negative for intraepithelial lesion or [...] Cholesterol, Total and HDL (05/13/2001 4:31 PM RN CORONARY CARE UNIT) Cholesterol/HDL Ratio Screen 2.3 No normal range HP CONVERSION Cholesterol 112(LL) 125 - 199 mg/dL HP CONVERSION HDL Cholesterol 49 40 - 60 mg/dL HP CONVERSION 05/13/2001 4:31 PM RN CORONARY CARE UNIT Dany Huizar APRN, [facility]_1 Performing Organization Address City/[facility] Co de Phone Number HP CONVERSION from Last 3 Months or Most Recently Relevant to Health Maintenance Care Teams Animal Killer Relationship Specialty Start Date End Date Te Jorge PCP - General 05/29/10
--- OUTSIDE RECORDS SUMMARY | 2023-11-12 07:00 | XMS_ITS | Encounter Summary ---
Author Organization [employer] Address [address] [place] [address]. [place] [address] Care Team Providers Care Branch Specialist Name Role Phone Min Napoles PA-C Primary Care Provider Mariangel Dickens PA-C Primary Care Provi chato Mariangel Dickens PA-C Unavailable [phone] Mariangel Dickens PA-C Unavailable [phone] Encounter Details Date Type Department Care Team [...] on filedocumented in this encounter Care Teams Branch Specialist Relationship Specialty Start Date End Date Min Napoles PA-C [address] [address] PCP - General Family Practice 10/18/10 2 Mariangel Dickens PA-C [address] [address] PCP - General Physician Traffic Routing Engineer 01/18/15 Mariangel Dickens PA-C [address] [facility] [address] [place] [address] PCP - Assigned PCP 09/03/16 04/30/18 Mariangel Dickens PA-C [address] [facility] [address] [place] [address] Assigned PCP 09/03/16 09/06/19 documented as of this encounter
--- OUTSIDE RECORDS SUMMARY | 2023-11-12 07:00 | XMS_ITS | Encounter Summary ---
Author Organization [employer] Address [address] [place] [address] Care Team Providers Care Food Beverage Server Name Role Phone Te Jorge Primary Care [...] on filedocumented in this encounter Care Teams Food Beverage Server Relationship Specialty Start Date End Date Te Jorge PCP - General 05/29/10 documented as of this encounter
--- OUTSIDE RECORDS SUMMARY | 2023-11-12 07:00 | XMS_ITS | Encounter Summary ---
Author Organization [facility] Address [address] [place] [address] Care Team Providers Care Interior Decorator Name Role Phone Min Napoles PA-C Primary Care Provider OestrMariangel aguilar PA-C Primary Care Provi chato Mariangel Dickens PA-C Unavailable [phone] Mariangel Dickens PA-C Unavailable + [phone] Reason for Visit * Reason Onset Date Comments Pt. Information/instruction 03/14/2013 Encounter Details Date Type Department Care Team (Late st Contact Info) Description 03/14/2013 MyC Medical Advice [address] [address] Min Napoles PA-C [address] [address] Pt. Information/instruct ion Social History [...] on filedocumented in this encounter Care Teams Interior Decorator Relationship Specialty Start Date End Date Min Napoles PA-C [address] [address] PCP - General Family Practice 10/18/10 04/03/13 Mariangel Dickens PA-C [address] [address] PCP - General Physician Shoe Parts Molder 01/18/15 Mariangel Dickens PA-C [address] [facility] [address] [place], [place] [id number] PCP - Assigned PCP 09/03/16 04/30/18 Mariangel Dickens PA-C [address] [place], [place] [id number] Assigned PCP 09/03/16 09/06/19 documented as of this encounter
--- OUTSIDE RECORDS SUMMARY | 2023-11-12 07:00 | XMS_ITS | Clinical Summary ---
Author Organization [facility] Address [address] [place] [address] Care Team Providers Care Title Abstractor Name Role Phone Mariangel Dickens PA-C Primary [...] r diseases of nasal cavity and sinuses(478.19) Witt 1-2 sprays into both nostrils daily 16 [...] migh t be different from the original. [email or web address] Problem Noted Date Diagnosed Date Headache 06/08/2011 Overview: Problem list name updated by automated process. Provider to review and confirm Problem list name updated by automated process. Provider to review Contraception 04/05/2011 Generalized anxiety disorder 03/07/2011 Anxiety 03/07/2011 CARDIOVASCULAR SCREENING; LDL GOAL LESS THAN 160 02/18/2010 Overview: [place] 10-year CHD Risk Score: 1% (0 Total [...] of Treatment Not on file Care Teams Title Abstractor Relationship Specialty Start Date End Date Mariangel Dickens PA-C PCP - General Physician Taping Foreman 01/18/15
--- OUTSIDE RECORDS SUMMARY | 2023-11-12 07:00 | XMS_ITS | Encounter Summary ---
Author Organization [employer] Address [address] [place] [address] Care Team Providers Care Resin Coater Name Role Phone Te Jorge Primary Care [...] on filedocumented in this encounter Care Teams Resin Coater Relationship Specialty Start Date End Date Te Jorge PCP - General 05/29/10 documented as of this encounter
--- OUTSIDE RECORDS SUMMARY | 2023-11-12 07:00 | XMS_ITS | Encounter Summary ---
Author Organization [facility] Address [address] [place] [address]. [place] [address] Care Team Providers Care Help Desk Consultant Name Role Phone Min Napoles PA-C Primary Care Provider Mariangel Dickens PA-C Primary Care Provi chato Mariangel Dickens PA-C Unavailable + [phone] Mariangel Dickens PA-C Unavailable + [phone] Encounter Details Date Type Department Care Team (Late st Contact Info) Description 09/12/2012 MyC Medical Advice [address] [address] Min Napoles PA-C [address] [address] Social History Tobacco Use Types [...] on filedocumented in this encounter Care Teams Help Desk Consultant Relationship Specialty Start Date End Date Min Napoles PA-C [place] [id number] PCP - General Family Practice 10/18/10 04/03/13 Mariangel Dickens PA-C [address] [address] PCP - General Physician Stores Naval 01/18/15 Mariangel Dickens PA-C 480 [facility] [address] [place] [address] PCP - Assigned PCP 09/03/16 04/30/18 Mariangel Dickens PA-C [address] [facility] [address] [place], [place] [id number] Assigned PCP 09/03/16 09/06/19 documented as of this encounter
--- OUTSIDE RECORDS SUMMARY | 2023-11-12 07:00 | XMS_ITS | Encounter Summary ---
Author Organization [facility] Address [address] [place] [address] Care Team Providers Care Diamond Grader Name Role Phone Min Napoles PA-C Primary Care Provider Mariangel Dickens PA-C Primary Care Provi chato Mariangel Dickens PA-C Unavailable [phone] Mariangel Dickens PA-C Unavailable [phone] Encounter Details Date Type Department Care Team (Late st Contact Info) Description 10/31/[address] [address] [facility] Social History Tobacco Use Types Packs/Day Years [...] on filedocumented in this encounter Care Teams Diamond Grader Relationship Specialty Start Date End Date Min Napoles PA-C [address] [address] PCP - General Family Practice 10/18/10 04/03/13 Mariangel Dickens PA-C [address] [address] PCP - General Physician Wad Impregnator 01/18/15 Mariangel Dickens PA-C 480 [facility] [address] [place] [address] PCP - Assigned PCP 09/03/16 04/30/18 Mariangel Dickens PA-C [address] [facility] [address] [place] [address] Assigned PCP 09/03/16 09/06/19 documented as of this encounter
--- OUTSIDE RECORDS SUMMARY | 2023-11-12 07:00 | XMS_ITS | Encounter Summary ---
Author Organization [facility] Address [address] [place] [address] Care Team Providers Care Electronic Warfare Technician Name Role Phone Te Jorge Primary Care Provider Unavailabl e Encounter Details Date Type Department Care Team (Latest Contact Info) Description 02/08/1996 Orders Only Taylor Carvajal MD [address] [facility] [address] [place] [address] Social History Tobacco Use Types Packs/Day Years Used Date Smoking Tobacco: Never Assessed Sex and Gender Information Value Date Recorded Sex Assigned at Not on file Gender Identity Not on file Sexual Orientation Not on file documented as of this encounter Plan of Treatment Not on file documented as of this encounter Visit Diagnoses Not on filedocumented in this encounter Care Teams Electronic Warfare Technician Relationship Specialty Start Date End Date Te Jorge PCP - General 05/29/10 documented as of this encounter
--- OUTSIDE RECORDS SUMMARY | 2023-11-12 07:00 | XMS_ITS | Encounter Summary ---
Author Organization [employer] Address [address] [place] [address] Care Team Providers Care Board Operator Name Role Phone Te Jorge Primary Care [...] on filedocumented in this encounter Care Teams Board Operator Relationship Specialty Start Date End Date Te Jorge PCP - General 05/29/10 documented as of this encounter
--- OUTSIDE RECORDS SUMMARY | 2023-11-12 07:00 | XMS_ITS | Encounter Summary ---
Author Organization [employer] Address [address] [place] [address] Care Team Providers Care Roofer Vinyl Coating Name Role Phone Te Jorge Primary Care Provider Unavailabl e Encounter Details Date Type Department Care Team (Latest Contact Info) Description 09/13/1995 [place] [address] [place] [address] Social History Tobacco Use Types Packs/Day Years Used Date Smoking Tobacco: Never Assessed Sex and Gender Information Value Date Recorded Sex Assigned at Not on file Gender Identity Not on file Sexual Orientation Not on file documented as of this encounter Plan of Treatment Not on file documented as of this encounter Visit Diagnoses Not on filedocumented in this encounter Care Teams Roofer Vinyl Coating Relationship Specialty Start Date End Date Te Jorge PCP - General 05/29/10 documented as of this encounter
--- OUTSIDE RECORDS SUMMARY | 2023-11-12 07:00 | XMS_ITS | Encounter Summary ---
Author Organization [employer] Address [address] [place] [address] Care Team Providers Care Filenet Architect Name Role Phone Te Jorge Primary Care [...] on filedocumented in this encounter Care Teams Filenet Architect Relationship Specialty Start Date End Date Te Jorge PCP - General 05/29/10 documented as of this encounter
--- OUTSIDE RECORDS SUMMARY | 2023-11-12 07:00 | XMS_ITS | Encounter Summary ---
Author Organization [facility] Address [address] [place] [address]. [place] [address] Care Team Providers Care Well Treatment Offsider Name Role Phone Min Napoles PA-C Primary Care Provider OestrMariangel aguilar PA-C Primary Care Provi chato Mariangel Dickens PA-C Unavailable + [phone] Mariangel Dickens PA-C Unavailable +1 [phone] Reason for Visit * Reason Onset Date Comments Health Maintenance 12/04/2010 Encounter Details Date Type Department Care Team (Late st Contact Info) Description 12/04/2010 Telephone [facility] [address] [place] [address] Min Napoles PA-C [facility] [address] [place] [address] Health Maintenance Social History Tobacco [...] this patient into the appropriate field in [facility]: Pap smear done on this date: June 2010 (approximately), by this group: [facility], Results were normal documented in this encounter Plan of Treatment Not on file documented as of this encounter Visit Diagnoses Not on filedocumented in this encounter Care Teams Well Treatment Offsider Relationship Specialty Start Date End Date Min Napoles PA-C [address] [address] PCP - General Family Practice 10/18/10 04/03/13 Mariangel Dickens PA-C [address] [address] PCP - General Physician Pretzel Twister 01/18/15 Mariangel Dickens PA-C [address] [place] [address] PCP - Assigned PCP 09/03/16 04/30/18 Mariangel Dickens PA-C [address] [place] [address] Assigned PCP 09/03/16 09/06/19 documented as of this encounter
--- OUTSIDE RECORDS SUMMARY | 2023-11-12 07:00 | XMS_ITS | Referral Summary ---
Author Organization [facility] Address [address] [place] [address] Care Team Providers Care Hospital Product Specialist Name Role Phone Mariangel Dickens PA-C Primary [...] r diseases of nasal cavity and sinuses(478.19) [place] 1-2 sprays into both nostrils daily 16 [...] migh t be different from the original. [email or web address] Problem Noted Date Diagnosed Date Headache 06/08/2011 Overview: Problem list name updated by automated process. Provider to review and confirm Problem list name updated by automated process. Provider to review Contraception 04/05/2011 Generalized anxiety disorder 03/07/2011 Anxiety 03/07/2011 CARDIOVASCULAR SCREENING; LDL GOAL LESS THAN 160 02/18/2010 Overview: [place] 10-year CHD Risk Score: 1% (0 Total [...] of Treatment Not on file Care Teams Hospital Product Specialist Relationship Specialty Start Date End Date Mariangel Dickens PA-C PCP - General Physician Survey Superintendent 01/18/15
--- OUTSIDE RECORDS SUMMARY | 2023-11-12 07:00 | XMS_ITS | Encounter Summary ---
Author Organization [facility] Address [address] [place] [address]. [place] [address] Care Team Providers Care Manager Supply Chain Name Role Phone Min Napoles PA-C Primary Care Provider OestrMariangel aguilar PA-C Primary Care Provi cahto Mariangel Dickens PA-C Unavailable +1 [phone] Mariangel Dickens PA-C Unavailable [phone] [phone] Reason for Visit * Reason Onset Date Comments MyChart Communication 02/15/2012 Encounter Details Date Type Department Care Team (Latest Contact Info) Description 02/15/2012 MyC Medical Advice [address] [address] Min Napoles PA-C [address] [address] MyChart Communication Social History Tobacco [...] did start cycle, please see most recent [employer] message. Message to Ashley Dony TOMASZ Cartwright, RN NTEGRATOR * Telephone Encounter - Soraya Washington - 02/16/2012 9:36 AM CST Reviewed MY Chart with clinic provider. Defer to PCP for BC restart. Message handled by Nurse Triage with [facility] - provider name: Parag Washington RN. . NTEGRATOR documented in this encounter Plan of Treatment Not on file documented as of this encounter Visit Diagnoses Not on filedocumented in this encounter Care Teams Manager Supply Chain Relationship Specialty Start Date End Date Min Napoles PA-C [address] [address] PCP - General Family Practice 10/18/10 04/03/13 Mariangel Dickens PA-C [address] [address] PCP - General Physician Procurement Director 01/18/15 Mariangel Dickens PA-C [address] [place] [address] PCP - Assigned PCP 09/03/16 04/30/18 Mariangel Dickens PA-C [address] [place] [address] Assigned PCP 09/03/16 09/06/19 documented as of this encounter
--- OUTSIDE RECORDS SUMMARY | 2023-11-12 07:00 | XMS_ITS | Encounter Summary ---
Author Organization [facility] Address [address] [place] [address]. [place] [address] Care Team Providers Care Cyber Analyst Name Role Phone Mariangel Dickens PA-C Primary Care Provi chato Mariangel Dickens PA-C Unavailable [phone] [phone] Mariangel Dickens PA-C Unavailable [phone] [phone] Reason for Visit * Reason Onset Date Comments Refill Request 10/01/2015 fluticasone Encounter Details Date Type Department Care Team (Late st Contact Info) Description 10/01/2015 MyC Medical Advice [address] [address] Talya Tuttle MD Refill Request [...] # refills: 7 Last Office Visit with [facility], [facility] or [facility] prescribing provider: 05/2015 Prescription approved per [facility] Refill Protocol. Toyin Mock RN documented in this encounter Plan of Treatment Not on file documented as of this encounter Visit Diagnoses Diagnosis Other diseases of nasal cavity and sinuses(478.19)- Primary Other diseases of nasal cavity and sinuses documented in this encounter Care Teams Cyber Analyst Relationship Specialty Start Date End Date Mariangel Dickens PA-C PCP - General Physician Nursing Surgical Services Director 01/18/15 Mariangel Dickens PA-C [address] [place] [address] PCP - Assigned PCP 09/03/16 04/30/18 Mariangel Dickens PA-C [address] [place] [address] Assigned PCP 09/03/16 09/06/19 documented as of this encounter
--- OUTSIDE RECORDS SUMMARY | 2023-11-12 07:01 | XMS_ITS | Encounter Summary ---
Author Organization [facility] Address [address] [place] [address] Care Team Providers Care Storm Chaser Name Role Phone Te Jorge Primary Care Provider Unavailabl e Encounter Details Date Type Department Care Team (Latest Contact Info) Description 02/27/1994 [place] [address] [place] [address] Social History Tobacco Use Types Packs/Day Years Used Date Smoking Tobacco: Never Assessed Sex and Gender Information Value Date Recorded Sex Assigned at Not on file Gender Identity Not on file Sexual Orientation Not on file documented as of this encounter Plan of Treatment Not on file documented as of this encounter Visit Diagnoses Not on filedocumented in this encounter Care Teams Storm Chaser Relationship Specialty Start Date End Date Te Jorge PCP - General 05/29/10 documented as of this encounter
--- OUTSIDE RECORDS SUMMARY | 2023-11-12 07:01 | XMS_ITS | Encounter Summary ---
Author Organization [facility] Address [address] [place] [address] Care Team Providers Care Wire Straightener Name Role Phone Te Jorge Primary Care [...] on filedocumented in this encounter Care Teams Wire Straightener Relationship Specialty Start Date End Date Te Jorge PCP - General 05/29/10 documented as of this encounter
--- OUTSIDE RECORDS SUMMARY | 2023-11-12 07:01 | XMS_ITS | Encounter Summary ---
Author Organization [facility] Address [address] [place] [address] Care Team Providers Care Electric Welder Helper Name Role Phone Te Jorge Primary Care Provider Unavailabl e Encounter Details Date Type Department Care Team (Latest Contact Info) Description 06/06/1995 Orders Only Lucia Santiago, CUSTOM TAILOR, AUTO BODY WORKER Social History Tobacco Use Types Packs/Day Years Used Date Smoking Tobacco: Never Assessed Sex and Gender Information Value Date Recorded Sex Assigned at Not on file Gender Identity Not on file Sexual Orientation Not on file documented as of this encounter Plan of Treatment Not on file documented as of this encounter Visit Diagnoses Not on filedocumented in this encounter Care Teams Electric Welder Helper Relationship Specialty Start Date End Date Te Jorge PCP - General 05/29/10 documented as of this encounter
--- OUTSIDE RECORDS SUMMARY | 2023-11-12 07:01 | XMS_ITS | Encounter Summary ---
Author Organization [facility] Address [address] [place] [address] Care Team Providers Care Furniture Designer Name Role Phone Te Jorge Primary Care [...] on filedocumented in this encounter Care Teams Furniture Designer Relationship Specialty Start Date End Date Te Jorge PCP - General 05/29/10 documented as of this encounter
--- OUTSIDE RECORDS SUMMARY | 2023-11-12 07:01 | XMS_ITS | Clinical Summary ---
Author Organization [facility] Address [place], [place] [address] Care Team Providers Care Electric Arc Welder Name Role Phone Clinic, No Pcp Or Primary Care Provider Unavaila ble Allergies Active Allergy Reactions Criticality Noted Date Comments Sulfa (Sulfonamide Antibiotics) Nausea And Vomiting 12/16/2016 Medications No known medications Active Problems Problem Noted Date Diagnosed Date Anxiety 03/07/2011 Allergic rhinitis 03/07/2007 Overview (12/16/2016): Overview: Problem list name updated by automated [...] Comments Blood Pressure 126/80 01/15/2017 11:36 AM ORNAMENTAL METAL FABRICATOR APPRENTICE Pulse 76 01/15/2017 11:36 AM ORNAMENTAL METAL FABRICATOR APPRENTICE Temperature 37.2 ??C (98.9 ??F) 12/16/2016 3:41 PM CD T Respiratory Rate 18 12/16/2016 3:41 PM CDT Oxygen Saturation 99% 12/16/2016 3:41 PM CDT RA Inhaled Oxygen Concentration - - Weight 79 kg (174 lb 1.6 oz) 01/15/2017 11:36 AM ORNAMENTAL METAL FABRICATOR APPRENTICE Height 170.2 cm (5' 7) 01/15/2017 11:36 AM ORNAMENTAL METAL FABRICATOR APPRENTICE Body Mass Index 27.27 01/15/2017 11:36 AM ORNAMENTAL METAL FABRICATOR APPRENTICE Plan of Treatment Health Maintenance Due Date [...] (1 of 2) 10/21/2019 COVID-19 vaccine series ( - 2022-24 season) 2023 Influenza for age 50-64 10/28/2023 HIV for [...] * ANTI HCV (12/16/2016 4:35 PM CDT) HEPATITIS C ANTIBODY Non-Reacti ve Non-Reacti ve 12/17/2016 6:54 PM CDT [facility] Blood BLOOD SPECIMEN / Unknown Venipuncture / Unknown 12/16/2016 4:35 PM CDT 12/16/2016 4:35 PM CDT Narrative [facility] - 12/17/2016 6:54 PM CDT Antibodies to HCV not detected; does not exclude the possibility of exposure to HCV. Shawnee Leroy MD SEND OUTS [facility] [address] [place] [address], [place] * ANTI HIV 1/2 (12/16/2016 4:35 PM CDT) HIV-1/HIV-2 ANTIBODY Non-Reacti ve Non-Reacti ve 12/17/2016 6:58 PM CDT [facility] Blood BLOOD SPECIMEN / Unknown Venipuncture / Unknown 12/16/2016 4:35 PM CDT 12/16/2016 4:35 PM CDT Narrative [facility] - 12/17/2016 6:58 PM CDT HIV-1 p24 and HIV-1/HIV-2 Ab not detected Shawnee Leroy MD SEND OUTS [facility] [address] [place] [address], from Last 3 Months or Most Recently Relevant to Health Maintenance Care Teams Electric Arc Welder Relationship Specialty Start Date End Date Clinic, No Pcp Or . PCP - General 12/16/16
== END 2023-11-07 09:50 | disposition home or self-care (01) ==
LOC: NFLDREF 11-12 06:59
PROVIDERS: PCP Physician Assistant Medical; Referring Provider Physician Assistant Medical; Visit Provider Physician Assistant Medical
DX: M50.30 Other cervical disc degeneration, unspecified cervical region (principal); E05.90 Thyrotoxicosis, unspecified without thyrotoxic crisis or storm; Z13.220 Encounter for screening for lipoid disorders
CPT/HCPCS: 80053; 80061; 84443

== ENCOUNTER 2024-01-17 09:30 | Outpatient (CLI) | payer BC, SELFPAY ==
--- OUTSIDE RECORDS SUMMARY | 2024-01-17 09:32 | XMS_ITS | Encounter Summary ---
Author Organization [facility] Address [address] [place] [address] Care Team Providers Care Bacteriology Professor Name Role Phone Min Napoles PA-C Primary Care Provider OestrMariangel aguilar PA-C Primary Care Provi chato Mariangel Dickens PA-C Unavailable [phone] [phone] Mariangel Dickens PA-C Unavailable [phone] [phone] Reason for Visit * Reason Onset Date Comments MyChart Communication 02/15/2012 Encounter Details Date Type Department Care Team (Latest Contact Info) Description 02/15/2012 MyC Medical Advice [address] [address] Min Napoles PA-C [address] [address] MyChart Communication Social History Tobacco Use Types Packs/Day Years Used Date Smoking Tobacco: Never Smokeless Tobacco: Never Alcohol Use Standard Drinks/Week Comments Yes 0 (1 standard drink = 0.6 oz pur e alcohol) Comments No Sex and Gender Information Value Date Recorded Sex Assigned at Not on file Legal Sex Female 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 Message to Ashley Cartwright, RN GER FINANCIAL SYSTEMS * Telephone Encounter - Soraya Washington - 02/16/2012 9:36 AM CST Reviewed MY Chart with clinic provider. Defer to PCP for BC restart. Message handled by Nurse Triage with [facility] - provider name: Parag Washington RN. . GER FINANCIAL SYSTEMS documented in this encounter Plan of Treatment Not on file documented as of this encounter Visit Diagnoses Not on filedocumented in this encounter Care Teams Bacteriology Professor Relationship Specialty Start Date End Date Min Napoles PA-C [address] [address] PCP - General Family Practice 10/18/10 04/03/13 Mariangel Dickens PA-C [address] [address] PCP - General Physician Aquatics Assistant Department Head 01/18/15 Mariangel Dickens PA-C [address] [place] [address] PCP - Assigned PCP 09/03/16 04/30/18 Mariangel Dickens PA-C [address] [place] [address] Assigned PCP 09/03/16 09/06/19 documented as of this encounter
--- OUTSIDE RECORDS SUMMARY | 2024-01-17 09:32 | XMS_ITS | Referral Summary ---
Author Organization [facility] Address [address] [place] [address] Care Team Providers Care Cocoa Milling Machine Operator Name Role Phone Mariangel Dickens PA-C Primary Care Provi chato Allergies Active Allergy Reactions Criticality Noted Date Comments Sulfa Antibiotics 03/25/2006 Medications cholecalciferol (VITAMIN D) 1000 UNIT tablet Take 1 tablet (1,000 Units) by mouth daily 100 tablet 3 5 Active Probiotic Product (ACIDOPHILUS PROBIOTIC BLEND) CAPS 5 Active magnesium oxide (MAG-OX) 400 (241.3 MG) MG tablet Take 1 tablet (400 mg) by mouth daily 60 tablet 3 5 Active fluticasone (FLONASE) 50 MCG/ACT nasal sprayIndications:O ther diseases of nasal cavity and sinuses(478.19) [place] 1-2 sprays into both nostrils daily 16 g 7 6 Active Ibuprofen (ADVIL PO) Active loratadine-pseudoe PHEDrine (CLARITIN-D 24-HOUR) 10-240 MG per tablet Take 1 tablet by mouth daily Active loratadine (CLARITIN) 10 MG tablet Take 10 mg by mouth daily Active norethindrone-ethi nyl estradiol (03/17) 1-20 MG-MCG per tabletIndications: Encounter for initial prescription of contraceptive pills Take 1 tablet by mouth daily 90 tablet 3 7 Active Active Problems Patient Care Coordination No te Formatting of this note migh t be different from the original. http://ptrx.org/admin/[email or web address] Problem Noted Date Diagnosed Date Headache 06/08/2011 Overview (11/27/2014): Problem list name updated by automated process. Provider to review and confirm Problem list name updated by automated process. Provider to review Contraception 04/05/2011 Generalized anxiety disorder 03/07/2011 Anxiety 03/07/2011 CARDIOVASCULAR SCREENING; LDL GOAL LESS THAN 160 02/18/2010 Overview (02/18/2010): [place] 10-year CHD Risk Score: 1% (0 Total Points) Values used to calculate score: Age: 39 years -- Points: 0 Total Cholesterol: N/A mg/dL -- Points: 0 HDL Cholesterol: N/A mg/dL -- Points: 0 Systolic BP (untreated): 90 mmHg -- Points: 0 Rosacea 02/18/2010 Allergic rhinitis 03/07/2007 Overview (11/27/2014): Problem list name updated by automated process. [...] School Help Needed Not on file 12/03 Comments No Sex and Gender Information Value Date Recorded Sex Assigned at Not on file Legal Sex Female 3:19 AM VISUAL DEVELOPER Gender Identity Not on file Sexual Orientation Not on file Last Filed Vital Signs Vital Sign Reading Time Taken Comments Blood Pressure 98/76 09/01/2016 1:56 PM CDT Pulse 81 09/01/2016 1:56 PM CDT Temperature 36.8 C (98.2 F) 09/01/2016 1:56 PM CDT Respiratory Rate 14 12/21/2017 11:36 AM CDT Oxygen Saturation 100% 09/01/2016 1:56 PM CDT Inhaled Oxygen Concentration - - Weight 79.4 kg (175 lb) 12/21/2017 11:36 AM CDT Height 170.2 cm (5' 7) 12/21/2017 11:36 AM CDT Body Mass Index 27.41 12/21/2017 11:36 AM CDT Plan of Treatment Not on file Care Teams Cocoa Milling Machine Operator Relationship Specialty Start Date End Date Mariangel Dickens PA-C PCP - General Physician Midwife Practitioner 01/18/15
--- OUTSIDE RECORDS SUMMARY | 2024-01-17 09:32 | XMS_ITS | Clinical Summary ---
Author Organization [facility] Address [address] [place] [address] Care Team Providers Care Customs And Border Protection Inspector Name Role Phone Mariangel Dickens PA-C Primary [...] ther diseases of nasal cavity and sinuses(478.19) [place] 1-2 sprays into both nostrils daily 16 [...] migh t be different from the original. http://ptrx.[email or web address]/[email or web address] Problem Noted Date Diagnosed Date Headache 06/08/2011 Overview (11/27/2014): Problem list name updated by automated process. Provider to review and confirm Problem list name updated by automated process. Provider to review Contraception 04/05/2011 Generalized anxiety disorder 03/07/2011 Anxiety 03/07/2011 CARDIOVASCULAR SCREENING; LDL GOAL LESS THAN 160 02/18/2010 Overview (02/18/2010): [place] 10-year CHD Risk Score: 1% (0 Total [...] on file Legal Sex Female 3:19 AM RAILROAD CAR LETTERER Gender Identity Not on file Sexual Orientation [...] of Treatment Not on file Care Teams Customs And Border Protection Inspector Relationship Specialty Start Date End Date Mariangel Dickens PA-C PCP - General Physician Job Boss 01/18/15
--- OUTSIDE RECORDS SUMMARY | 2024-01-17 09:32 | XMS_ITS | Encounter Summary ---
Author Organization [facility] Address [address] [place] [address] Care Team Providers Care Unisaw Operator Name Role Phone Mariangel Dickens PA-C Primary Care Provi chato Mariangel Dickens PA-C Unavailable [phone] Mariangel Dickens PA-C Unavailable [phone] [phone] Reason for Visit * Reason Onset Date Comments Refill Request 10/01/2015 fluticasone Encounter Details Date Type Department Care Team (Late st Contact Info) Description 10/01/2015 [facility] Medical Advice [address] [address] Talya Tuttle MD Refill Request (fluticasone) Social History Tobacco Use Types Packs/Day Years Used Date Smoking Tobacco: Never Smokeless Tobacco: Never Alcohol Use Standard Drinks/Week Comments Yes 0 (1 standard drink = 0.6 oz pur e alcohol) Comments No Sex and Gender Information Value Date Recorded Sex Assigned at Not on file Legal Sex Female 3:19 AM BUSINESS SYSTEMS ANALYST Gender Identity Not on file Sexual Orientation Not on file documented as of this encounter Miscellaneous Notes * Telephone Encounter - Toyin Mock RN - 10/01/2015 2:12 PM CDT fluticasone Last Written Prescription Date: 03/02/2014 Last Fill Quantity: 16 g, # refills: 7 Last Office Visit with [facility] or [facility] prescribing provider: 05/2015 Prescription approved per [facility] Refill Protocol. Toyin Mock RN documented in this encounter Plan of Treatment Not on file documented as of this encounter Visit Diagnoses Diagnosis Other diseases of nasal cavity and sinuses(478.19)- Primary Other diseases of nasal cavity and sinuses documented in this encounter Care Teams Unisaw Operator Relationship Specialty Start Date End Date Mariangel Dickens PA-C PCP - General Physician Administrative Hearing Officer 01/18/15 Mariangel Dickens PA-C [address] [facility] [address] [place] [address] PCP - Assigned PCP 09/03/16 04/30/18 Mariangel Dickens PA-C [address] [place] [address] Assigned PCP 09/03/16 09/06/19 documented as of this encounter
--- OUTSIDE RECORDS SUMMARY | 2024-01-17 09:32 | XMS_ITS | Encounter Summary ---
Author Organization [facility] Address [address] [place] [address] Care Team Providers Care Coat Joiner Name Role Phone Min Napoles PA-C Primary Care Provider OestrMariangel aguilar PA-C Primary Care Provi chato Mariangel Dickens PA-C Unavailable [phone] [phone] Mariangel Dickens PA-C Unavailable [phone] Reason for Visit * Reason Onset Date Comments Health Maintenance 12/04/2010 Encounter Details Date Type Department Care Team (Late st Contact Info) Description 12/04/[address] [address] Min Napoles PA-C [facility] [address] [place] [address] Health Maintenance Social History Tobacco Use Types Packs/Day Years Used Date Smoking Tobacco: Never Alcohol Use Standard Drinks/Week Comments Yes 0 (1 standard drink = 0.6 oz pur e alcohol) Comments No Sex and Gender Information Value Date Recorded Sex Assigned at Not on file Legal Sex Female 3:19 AM FERRYBOAT HELPER Gender Identity Not on file Sexual Orientation Not on file documented as of this encounter Miscellaneous Notes * Telephone Encounter - Julio Conchis - 12/04/2010 1:12 PM CDT Please abstract the following data from this visit with this patient into the appropriate field in [facility]: Pap smear done on this date: June 2010 (approximately), by this group: [facility], Results were normal documented in this encounter Plan of Treatment Not on file documented as of this encounter Visit Diagnoses Not on filedocumented in this encounter Care Teams Coat Joiner Relationship Specialty Start Date End Date Min Napoles PA-C [address] [address] PCP - General Family Practice 10/18/10 04/03/13 Mariangel Dickens PA-C [address] [address] PCP - General Physician Sfdc Consultant 01/18/15 Mariangel Dickens PA-C [address] [place] [address] PCP - Assigned PCP 09/03/16 04/30/18 Mariangel Dickens PA-C [address] [place] [address] Assigned PCP 09/03/16 09/06/19 documented as of this encounter
--- OUTSIDE RECORDS SUMMARY | 2024-01-17 09:32 | XMS_ITS | Encounter Summary ---
Author Organization [facility] Address [address] [place] [address]. [place] [address] Care Team Providers Care Solar Energy Sales Specialist Name Role Phone Min Napoles PA-C Primary Care Provider Mariangel Dickens PA-C Primary Care Provi chato Mariangel Dickens PA-C Unavailable + [phone] Mariangel Dickens PA-C Unavailable [phone] Encounter Details Date Type Department Care Team [...] on file Legal Sex Female 3:19 AM GLASS FITTER Gender Identity Not on file Sexual Orientation Not on file documented as of this encounter Plan of Treatment Not on file documented as of this encounter Visit Diagnoses Not on filedocumented in this encounter Care Teams Solar Energy Sales Specialist Relationship Specialty Start Date End Date Min Napoles PA-C [address] [address] PCP - General Family Practice 10/18/10 04/03/13 Mariangel Dickens PA-C [address] [address] PCP - General Physician Blade Bender Furnace Tender 01/18/15 Mariangel Dickens PA-C [address] [place] [address] PCP - Assigned PCP 09/03/16 04/30/18 Mariangel Dickens PA-C [address] [place] [address] Assigned PCP 09/03/16 09/06/19 documented as of this encounter
--- OUTSIDE RECORDS SUMMARY | 2024-01-17 09:32 | XMS_ITS | Clinical Summary ---
Author Organization [facility] Address [address] [place] [address] Care Team Providers Care Peoplesoft Hcm Developer Name Role Phone Te Jorge Primary Care Provider Unavailabl e Source Comments You are receiving this document as you are listed as the primary care provider,follow-up provider, or the patient has been referred to you for consultation.This is in compliance with the Medicare and[facility] EHR Incentive Program,which states Providers who transition their patient to another setting of careor provider of care or refers their patient to another provider of care shouldprovide summary care record for each transition of care or referral. [employer] Allergies Active Allergy Reactions Criticality Noted Date [...] - - Pulse - - Temperature 36.3 C (97.3 F) 08/10/2022 9:47 AM CDT Respiratory Rate - - Oxygen Saturation - [...] on patient's age to complete this topic RSV Aged Out No longer eligi ble based [...] TOTAL AND HDL Routine 05/13/2001 4:31 PM UPPER MARKER from Last 3 Months or Most Recently Relevant to Health Maintenance Results * Pap Smear (11/04/2003 2:44 PM CDT) PAP Smear Liquid Based SEE TEXT No normal range HP CONVERSION Comment: Patient: DANY BRICE CERVICAL CYTOLOGY REPORT Pathology # [id number] Date Obtained: Date Received: CYTOLOGIC IMPRESSION: Negative for intraepithelial lesion or malignancy. Fungal organisms identified. ADDITIONAL DATA LMP: 10-30-03,PREG CLINICAL HIST LIQUID BASED PAP CERVICAL SPECIMEN ADEQUACY: Satisfactory. ENDOCERVICAL CELLS: Present. Verified 11/13/03 by: JYO (electronic signature) 11/04/2003 2:44 PM CDT Gracy Gutierrez APRN, JORDI LAB_1 HP CONVERSION * HIV Antibody (11/04/2003 12:40 PM CDT) HIV 1/HIV 2 Non Reac Non Reac HP CONVERSION 11/04/2003 12:4 0 PM CDT Gracy Gutierrez APRN, CNM LAB_1 HP CONVERSION * (ABNORMAL) Cholesterol, Total and HDL (05/13/2001 4:31 PM UPPER MARKER) Cholesterol/HDL Ratio Screen 2.3 No normal range HP CONVERSION Cholesterol 112(LL) 125 - 199 mg/dL HP CONVERSION HDL Cholesterol 49 40 - 60 mg/dL HP CONVERSION 05/13/2001 4:31 PM UPPER MARKER Dany Huizar APRN, CNM LAB_1 HP CONVERSION from Last 3 Months or Most Recently Relevant to Health Maintenance Care Teams Peoplesoft Hcm Developer Relationship Specialty Start Date End Date Te Jorge PCP - General 05/29/10
--- OUTSIDE RECORDS SUMMARY | 2024-01-17 09:32 | XMS_ITS | Encounter Summary ---
Author Organization [facility] Address [address] [place] [address] Care Team Providers Care Hand Straightener Name Role Phone Te Jorge Primary [...] on filedocumented in this encounter Care Teams Hand Straightener Relationship Specialty Start Date End Date Te Jorge PCP - General 05/29/10 documented as of this encounter
--- OUTSIDE RECORDS SUMMARY | 2024-01-17 09:32 | XMS_ITS | Encounter Summary ---
Author Organization [place] Address [address] [place] [address]. [place] [address] Care Team Providers Care Care Clinician Name Role Phone Min Napoles PA-C Primary Care Provider OestrMariangel aguilar PA-C Primary Care Provi chato Mariangel Dickens PA-C Unavailable +1 [phone] Mariangel Dickens PA-C Unavailable [phone] Reason for Visit * Reason Onset Date Comments Pt. Information/instruction 03/14/2013 Encounter Details Date Type Department Care Team (Late st Contact Info) Description 03/14/2013 [facility] Medical Advice [address] [address] Min Napoles PA-C [address] [address] Pt. Information/instruct ion Social History Tobacco Use Types Packs/Day Years Used Date Smoking Tobacco: Never Smokeless Tobacco: Never Alcohol Use Standard Drinks/Week Comments Yes 0 (1 standard drink = 0.6 oz pur e alcohol) Comments No Sex and Gender Information Value Date Recorded Sex Assigned at Not on file Legal Sex Female 3:19 AM DIRECTOR GIFT Gender Identity Not on file Sexual Orientation Not on file documented as of this encounter Plan of Treatment Not on file documented as of this encounter Visit Diagnoses Not on filedocumented in this encounter Care Teams Care Clinician Relationship Specialty Start Date End Date Min Napoles PA-C [address] [address] PCP - General Family Practice 10/18/10 04/03/13 Mariangel Dickens PA-C [address] [address] PCP - General Physician Systems Support Engineer 01/18/15 Mariangel Dickens PA-C [address] [facility] [address] [place], [place] [id number] PCP - Assigned PCP 09/03/16 04/30/18 Mariangel Dickens PA-C [address] [facility] [address] [place] [address] Assigned PCP 09/03/16 09/06/19 documented as of this encounter
--- OUTSIDE RECORDS SUMMARY | 2024-01-17 09:32 | XMS_ITS | Encounter Summary ---
Author Organization [place] Address [address] [place] [address] Care Team Providers Care Certified Novell Administrator Name Role Phone Min Napoles PA-C Primary Care Provider Mariangel Dickens PA-C Primary Care Provi chato Mariangel Dicekns PA-C Unavailable + [phone] Mariangel Dickens PA-C Unavailable + [phone] Encounter Details Date Type Department Care Team (Late st Contact Info) Description 10/31/2011 [facility] [address] [address] [facility] Social History Tobacco Use Types Packs/Day Years Used Date Smoking Tobacco: Never Smokeless Tobacco: Never Alcohol Use Standard Drinks/Week Comments Yes 0 (1 standard drink = 0.6 oz pur e alcohol) Comments No Sex and Gender Information Value Date Recorded Sex Assigned at Not on file Legal Sex Female 3:19 AM STUDIO DIRECTOR Gender Identity Not on file Sexual Orientation Not on file documented as of this encounter Plan of Treatment Not on file documented as of this encounter Visit Diagnoses Not on filedocumented in this encounter Care Teams Certified Novell Administrator Relationship Specialty Start Date End Date Min Napoles PA-C [address] [address] PCP - General Family Practice 8/23/11 2/6/14 Mariangel Dickens PA-C [address] [address] PCP - General Physician Building Maintenance Engineer 01/18/15 Mariangel Dickens PA-C [address] [address] PCP - Assigned PCP 09/03/16 04/30/18 Mariangel Dickens PA-C [address] [address] Assigned PCP 09/03/16 09/06/19 documented as of this encounter
--- OUTSIDE RECORDS SUMMARY | 2024-01-17 09:32 | XMS_ITS | Encounter Summary ---
Author Organization [place] Address [address] [place] [address]. [place] [address] Care Team Providers Care Rerolling Machine Operator Name Role Phone Min Napoles PA-C Primary Care Provider OestrMariangel aguilar PA-C Primary Care Provi chato Mariangel Dickens PA-C Unavailable + [phone] OestrMariangel aguilar PA-C Unavailable [phone] Encounter Details Date Type Department Care Team (Late st Contact Info) Description 09/12/2012 [facility] Medical Advice [address] [address] Min Napoles PA-C [address] [address] Social History Tobacco Use Types Packs/Day Years Used Date Smoking Tobacco: Never Smokeless Tobacco: Never Alcohol Use Standard Drinks/Week Comments Yes 0 (1 standard drink = 0.6 oz pur e alcohol) Comments No Sex and Gender Information Value Date Recorded Sex Assigned at Not on file Legal Sex Female 3:19 AM CIDER PRESS OPERATOR Gender Identity Not on file Sexual Orientation Not on file documented as of this encounter Plan of Treatment Not on file documented as of this encounter Visit Diagnoses Not on filedocumented in this encounter Care Teams Rerolling Machine Operator Relationship Specialty Start Date End Date Min Napoles PA-C [address] [address] PCP - General Family Practice 10/18/10 04/03/13 Mariangel Dickens PA-C [address] [address] PCP - General Physician Draw Operator 01/18/15 Mariangel Dickens PA-C [address] [place] [address] PCP - Assigned PCP 09/03/16 04/30/18 Mariangel Dickens PA-C 480 [facility] [address] [place], [place] [address] Assigned PCP 09/03/16 09/06/19 documented as of this encounter
--- OUTSIDE RECORDS SUMMARY | 2024-01-17 09:33 | XMS_ITS | Encounter Summary ---
Author Organization [employer] Address [address] [place] [address] Care Team Providers Care University Relations Director Name Role Phone Te Jorge Primary Care Provider Unavailabl e Encounter Details Date Type Department Care Team (Latest Contact Info) Description 06/06/1995 Orders Only Lucia Santiago, SAW CLEANER, CARRIER WASHER Social History Tobacco Use Types Packs/Day Years Used Date Smoking Tobacco: Never Assessed Sex and Gender Information Value Date Recorded Sex Assigned at Not on file Gender Identity Not on file Sexual Orientation Not on file documented as of this encounter Plan of Treatment Not on file documented as of this encounter Visit Diagnoses Not on filedocumented in this encounter Care Teams University Relations Director Relationship Specialty Start Date End Date Te Jorge PCP - General 05/29/10 documented as of this encounter
--- OUTSIDE RECORDS SUMMARY | 2024-01-17 09:33 | XMS_ITS | Encounter Summary ---
Author Organization [facility] Address [address] [place] [address] Care Team Providers Care Garde Manger Name Role Phone Te Jorge Primary Care Provider Unavailabl e Encounter Details Date Type Department Care Team (Latest Contact Info) Description 02/08/1996 Orders Only Taylor Carvajal MD [address] [facility] [address] [place] [address] Social History Tobacco Use Types Packs/Day Years Used Date Smoking Tobacco: Never Assessed Sex and Gender Information Value Date Recorded Sex Assigned at Not on file Gender Identity Not on file Sexual Orientation Not on file documented as of this encounter Plan of Treatment Not on file documented as of this encounter Visit Diagnoses Not on filedocumented in this encounter Care Teams Garde Manger Relationship Specialty Start Date End Date Te Jorge PCP - General 05/29/10 documented as of this encounter
--- OUTSIDE RECORDS SUMMARY | 2024-01-17 09:33 | XMS_ITS | Encounter Summary ---
Author Organization [employer] Address [address] [place] [address] Care Team Providers Care Desktop Specialist Name Role Phone Te Jorge Primary Care Provider Unavailabl e Encounter Details Date Type Department Care Team (Latest Contact Info) Description 02/27/1994 [place] [address] [place] [address] Social History Tobacco Use Types Packs/Day Years Used Date Smoking Tobacco: Never Assessed Sex and Gender Information Value Date Recorded Sex Assigned at Not on file Gender Identity Not on file Sexual Orientation Not on file documented as of this encounter Plan of Treatment Not on file documented as of this encounter Visit Diagnoses Not on filedocumented in this encounter Care Teams Desktop Specialist Relationship Specialty Start Date End Date Te Jorge PCP - General 05/29/10 documented as of this encounter
--- OUTSIDE RECORDS SUMMARY | 2024-01-17 09:33 | XMS_ITS | Encounter Summary ---
Author Organization [employer] Address [address] [place] [address] Care Team Providers Care Petroleum Terminal Plant Operator Name Role Phone Te Jorge Primary [...] on filedocumented in this encounter Care Teams Petroleum Terminal Plant Operator Relationship Specialty Start Date End Date Te Jorge PCP - General 05/29/10 documented as of this encounter
--- OUTSIDE RECORDS SUMMARY | 2024-01-17 09:33 | XMS_ITS | Clinical Summary ---
Author Organization [facility] Address [place], [place] [address] Care Team Providers Care Thermite Welder Name Role Phone Clinic, No Pcp [...] Comments Blood Pressure 126/80 01/15/2017 11:36 AM CORPORATE INTERN Pulse 76 01/15/2017 11:36 AM CORPORATE INTERN Temperature 37.2 C (98.9 F) 12/16/2016 3:41 PM CDT Respiratory Rate 18 12/16/2016 3:41 PM CDT Oxygen Saturation 99% 12/16/2016 3:41 PM CDT RA Inhaled Oxygen Concentration - - Weight 79 kg (174 lb 1.6 oz) 01/15/2017 11:36 AM CORPORATE INTERN Height 170.2 cm (5' 7) 01/15/2017 11:36 AM CORPORATE INTERN Body Mass Index 27.27 01/15/2017 11:36 AM CORPORATE INTERN Plan of Treatment Health Maintenance Due Date [...] 2) 10/21/2019 COVID-19 vaccine series ( - 2023- season) 2023 Influenza for age 50-64 10/28/2023 [...] * ANTI HCV (12/16/2016 4:35 PM CDT) [facility] HEPATITIS C ANTIBODY Non-Reacti ve Non-Reacti ve 12/17/2016 6:54 PM CDT [facility] Blood BLOOD SPECIMEN / Unknown Venipuncture / Unknown 12/16/2016 4:35 PM CDT 12/16/2016 4:35 PM CDT Narrative [facility] - 12/17/2016 6:54 PM CDT Antibodies to HCV not detected; does not exclude the possibility of exposure to HCV. Shawnee Leroy MD SEND OUTS [facility] [address] [place] [address], [place] * ANTI HIV 1/2 (12/16/2016 4:35 PM CDT) HIV-1/HIV-2 ANTIBODY Non-Reacti ve Non-Reacti ve 12/17/2016 6:58 PM CDT [facility] Blood BLOOD SPECIMEN / Unknown Venipuncture / Unknown 12/16/2016 4:35 PM CDT 12/16/2016 4:35 PM CDT Narrative [facility] - 12/17/2016 6:58 PM CDT HIV-1 p24 and HIV-1/HIV-2 Ab not detected Shawnee Leroy MD SEND OUTS [facility] [address] [place] [address], [place] from Last 3 Months or Most Recently Relevant to Health Maintenance Insurance Payer Benefit Plan / Group Subscriber ID Effective Dates Phone Address Type [facility] [id number] 2019-Present [address] [place] [address] Care Teams Thermite Welder Relationship Specialty Start Date End Date Clinic, No Pcp Or . PCP - General 12/16/16
--- OUTSIDE RECORDS SUMMARY | 2024-01-17 09:33 | XMS_ITS | Encounter Summary ---
Author Organization [facility] Address [address] [place] [address] Care Team Providers Care Generator Worker Name Role Phone Te Jorge Primary Care [...] on filedocumented in this encounter Care Teams Generator Worker Relationship Specialty Start Date End Date Te Jorge PCP - General 05/29/10 documented as of this encounter
--- OUTSIDE RECORDS SUMMARY | 2024-01-17 09:33 | XMS_ITS | Encounter Summary ---
Author Organization [employer] Address [address] [place] [address] Care Team Providers Care Riding Instructor Name Role Phone Te Jorge Primary Care [...] on filedocumented in this encounter Care Teams Riding Instructor Relationship Specialty Start Date End Date Te Jorge PCP - General 05/29/10 documented as of this encounter
--- OUTSIDE RECORDS SUMMARY | 2024-01-17 09:33 | XMS_ITS | Encounter Summary ---
Author Organization [employer] Address [address] [place] [address] Care Team Providers Care Bottle Tester Name Role Phone Te Jorge Primary Care [...] on filedocumented in this encounter Care Teams Bottle Tester Relationship Specialty Start Date End Date Te Jorge PCP - General 05/29/10 documented as of this encounter
--- OUTSIDE RECORDS SUMMARY | 2024-01-17 09:33 | XMS_ITS | Encounter Summary ---
Author Organization [facility] Address [address] [place] [address] Care Team Providers Care Research Programmer Name Role Phone Te Jorge Primary [...] on filedocumented in this encounter Care Teams Research Programmer Relationship Specialty Start Date End Date Te Jorge PCP - General 05/29/10 documented as of this encounter
--- OUTSIDE RECORDS SUMMARY | 2024-01-17 09:33 | XMS_ITS | Encounter Summary ---
Author Organization [employer] Address [address] [place] [address] Care Team Providers Care Onyx Chip Terrazzo Worker Name Role Phone Te Jorge Primary Care Provider Unavailabl e Encounter Details Date Type Department Care Team (Latest Contact Info) Description 09/13/1995 [place] [address] [place] [address] Social History Tobacco Use Types Packs/Day Years Used Date Smoking Tobacco: Never Assessed Sex and Gender Information Value Date Recorded Sex Assigned at Not on file Gender Identity Not on file Sexual Orientation Not on file documented as of this encounter Plan of Treatment Not on file documented as of this encounter Visit Diagnoses Not on filedocumented in this encounter Care Teams Onyx Chip Terrazzo Worker Relationship Specialty Start Date End Date Te Jorge PCP - General 05/29/10 documented as of this encounter
--- NOTE | 2024-01-17 10:09 | W.ANESCHARGE ---
Anesthesia Charges Start Date/Time Anesthesia Start Date: 01/17/24 Anesthesia Start Time: 10:10 Stop Date/Time Anesthesia Stop Date: 01/17/24 Anesthesia Stop Time: 10:40
--- NOTE | 2024-01-17 10:55 | W.ANESCHARGE ---
Anesthesia Charges Start Date/Time Anesthesia Start Date: 01/17/24 Anesthesia Start Time: 10:10 Stop Date/Time Anesthesia Stop Date: 01/17/24 Anesthesia Stop Time: 10:40
== END 2024-01-17 09:31 | disposition home or self-care (01) ==
LOC: OP CLINIC 09:30
PROVIDERS: PCP Physician Assistant Medical; Visit Provider Internal Medicine
DX: Z12.11 Encounter for screening for malignant neoplasm of colon (principal); D12.5 Benign neoplasm of sigmoid colon; K57.30 Diverticulosis of large intestine without perforation or abscess without bleeding
CPT/HCPCS: 00811; 45380; J2704

== ENCOUNTER 2024-01-18 10:16 | Outpatient (CLI) | payer BC, SELFPAY ==
--- NOTE | 2024-01-18 10:15 | CRLHL7_ITS ---
For Patients: As a result of the Century Cures Act, medical imaging exams and procedure reports are released immediately into your electronic medical record. You may view this report before your referring provider. If you have questions, please contact your health care provider. BILATERAL SCREENING MAMMOGRAM WITH COMPUTER-AIDED DETECTION AND TOMOSYNTHESIS TECHNIQUE: CC and MLO views were obtained. These mammographic images have been obtained using full-field digital technique. These mammographic images were interpreted with the benefit of computer-aided detection. Breast Tomosynthesis was used in this interpretation. COMPARISON FILM: 10/09/23, 10/06/22, 02/22/22. FINDINGS: There are scattered areas of fibroglandular density IMPRESSION: There is no radiographic evidence for malignancy. ASSESSMENT: BI-RADS Category 1: Negative RECOMMENDATION: Routine screening mammogram in 1 year. A lay language report of this examination will be provided to the patient. Juan Davis M.D. Diagnostic Radiologist [email or web address] RAQUEL/Dictated by: Juan Davis MD @ 01/21/2024 12:38:00 PM (Electronically Signed)
--- OUTSIDE RECORDS SUMMARY | 2024-01-18 10:19 | XMS_ITS | Encounter Summary ---
Author Organization [place] Address [address] [place] [address] Care Team Providers Care Front Office Secretary Name Role Phone Mariangel Dickens PA-C Primary Care Provi chato Mariangel Dickens PA-C Unavailable [phone] Mariangel Dickens PA-C Unavailable [phone] Reason for Visit * Reason Onset Date Comments Refill Request 10/01/2015 fluticasone Encounter Details Date Type Department Care Team (Late st Contact Info) Description 10/01/2015 [facility] Advice [address] [address] Talya Tuttle MD Refill Request (fluticasone) Social History Tobacco Use Types Packs/Day Years Used Date Smoking Tobacco: Never Smokeless Tobacco: Never Alcohol Use Standard Drinks/Week Comments Yes 0 (1 standard drink = 0.6 oz pur e alcohol) Comments No Sex and Gender Information Value Date Recorded Sex Assigned at Not on file Legal Sex Female 3:19 AM DIRECTOR RADIATION ONCOLOGY Gender Identity Not on file Sexual Orientation Not on file documented as of this encounter Miscellaneous Notes * Telephone Encounter - Toyin Mock RN - 10/01/2015 2:12 PM CDT fluticasone Last Written Prescription Date: 03/02/2014 Last Fill Quantity: 16 g, # refills: 7 Last Office Visit with [facility] or [facility] prescribing provider: 05/2015 Prescription approved per [facility] Refill Protocol. Toyin Mock RN documented in this encounter Plan of Treatment Not on file documented as of this encounter Visit Diagnoses Diagnosis Other diseases of nasal cavity and sinuses(478.19)- Primary Other diseases of nasal cavity and sinuses documented in this encounter Care Teams Front Office Secretary Relationship Specialty Start Date End Date Mariangel Dickens PA-C PCP - General Physician Director Of Enrollment 01/18/15 Mariangel Dickens PA-C [address] [facility] [address] [place] [address] PCP - Assigned PCP 09/03/16 04/30/18 Mariangel Dickens PA-C [address] [place] [address] Assigned PCP 09/03/16 09/06/19 documented as of this encounter
--- OUTSIDE RECORDS SUMMARY | 2024-01-18 10:19 | XMS_ITS | Encounter Summary ---
Author Organization [facility] Address [address] [place] [address] Care Team Providers Care Structural Engineering Drafting Officer Name Role Phone Te Jorge Primary Care Provider Unavailabl e Encounter Details Date Type Department Care Team (Latest Contact Info) Description 02/08/1996 Orders Only Taylor Carvajal MD [address] [facility] [address] [place] [address] Social History Tobacco Use Types Packs/Day Years Used Date Smoking Tobacco: Never Assessed Sex and Gender Information Value Date Recorded Sex Assigned at Not on file Gender Identity Not on file Sexual Orientation Not on file documented as of this encounter Plan of Treatment Not on file documented as of this encounter Visit Diagnoses Not on filedocumented in this encounter Care Teams Structural Engineering Drafting Officer Relationship Specialty Start Date End Date Te Jorge PCP - General 05/29/10 documented as of this encounter
--- OUTSIDE RECORDS SUMMARY | 2024-01-18 10:19 | XMS_ITS | Encounter Summary ---
Author Organization [facility] Address [address] [place] [address] Care Team Providers Care Recovery Assistant Name Role Phone Min Napoles PA-C Primary Care Provider OestrMariangel aguilar PA-C Primary Care Provi chato Mariangel Dickens PA-C Unavailable [phone] Mariangel Dickens PA-C Unavailable [phone] Reason for Visit * Reason Onset Date Comments Health Maintenance 12/04/2010 Encounter Details Date Type Department Care Team (Late st Contact Info) Description 12/04/[address] [address] Min Napoles PA-C [facility] [address] [place] [address] Health Maintenance Social History Tobacco Use Types Packs/Day Years Used Date Smoking Tobacco: Never Alcohol Use Standard Drinks/Week Comments Yes 0 (1 standard drink = 0.6 oz pur e alcohol) Comments No Sex and Gender Information Value Date Recorded Sex Assigned at Not on file Legal Sex Female 3:19 AM CAREER SERVICES MANAGER Gender Identity Not on file Sexual Orientation Not on file documented as of this encounter Miscellaneous Notes * Telephone Encounter - Julio Conchis - 12/04/2010 1:12 PM CDT Please abstract the following data from this visit with this patient into the appropriate field in [facility]: Pap smear done on this date: June 2010 (approximately), by this group: [facility], Results were normal documented in this encounter Plan of Treatment Not on file documented as of this encounter Visit Diagnoses Not on filedocumented in this encounter Care Teams Recovery Assistant Relationship Specialty Start Date End Date Min Napoles PA-C [address] [address] PCP - General Family Practice 10/18/10 04/03/13 Mariangel Dickens PA-C [address] [address] PCP - General Physician Concrete Handler 01/18/15 Mariangel Dickens PA-C [address] [place] [address] PCP - Assigned PCP 09/03/16 04/30/18 Mariangel Dickens PA-C [address] [place] [address] Assigned PCP 09/03/16 09/06/19 documented as of this encounter
--- OUTSIDE RECORDS SUMMARY | 2024-01-18 10:19 | XMS_ITS | Encounter Summary ---
Author Organization [facility] Address [address] [place] [address]. [place] [address] Care Team Providers Care Ammunition Storekeeper Name Role Phone Min Napoles PA-C Primary Care Provider OestrMariangel aguilar PA-C Primary Care Provi chato Mariangel Dcikens PA-C Unavailable + [phone] OestrMariangel aguilar PA-C Unavailable +1 [phone] Encounter Details Date Type Department Care Team (Late st Contact Info) Description 09/12/2012 [facility] Medical Advice [address] [address] Min Napoles PA-C [address] [address] Social History Tobacco Use Types Packs/Day Years Used Date Smoking Tobacco: Never Smokeless Tobacco: Never Alcohol Use Standard Drinks/Week Comments Yes 0 (1 standard drink = 0.6 oz pur e alcohol) Comments No Sex and Gender Information Value Date Recorded Sex Assigned at Not on file Legal Sex Female 3:19 AM SHIP WORKER Gender Identity Not on file Sexual Orientation Not on file documented as of this encounter Plan of Treatment Not on file documented as of this encounter Visit Diagnoses Not on filedocumented in this encounter Care Teams Ammunition Storekeeper Relationship Specialty Start Date End Date Min Napoles PA-C [address] [address] PCP - General Family Practice 10/18/10 04/03/13 Mariangel Dickens PA-C [address] [address] PCP - General Physician Quality Nurse 01/18/15 Mariangel Dickens PA-C [address] [place] [address] PCP - Assigned PCP 09/03/16 04/30/18 Mariangel Dickens PA-C [address] [facility] [address] [place], [place] [address] Assigned PCP 09/03/16 09/06/19 documented as of this encounter
--- OUTSIDE RECORDS SUMMARY | 2024-01-18 10:19 | XMS_ITS | Encounter Summary ---
Author Organization [facility] Address [address] [place] [address] Care Team Providers Care Mobile Patrol Officer Name Role Phone Te Jorge Primary [...] on filedocumented in this encounter Care Teams Mobile Patrol Officer Relationship Specialty Start Date End Date Te Jorge PCP - General 05/29/10 documented as of this encounter
--- OUTSIDE RECORDS SUMMARY | 2024-01-18 10:19 | XMS_ITS | Referral Summary ---
Author Organization [facility] Address [address] [place] [address] Care Team Providers Care Transplant Immunologist Name Role Phone Mariangel Dickens PA-C Primary [...] ther diseases of nasal cavity and sinuses(478.19) [place] 1-2 sprays into both nostrils daily 16 [...] migh t be different from the original. http://ptrx.[email or web address]/[email or web address] Problem Noted Date Diagnosed Date Headache 06/08/2011 Overview (11/27/2014): Problem list name updated by automated process. Provider to review and confirm Problem list name updated by automated process. Provider to review Contraception 04/05/2011 Generalized anxiety disorder 03/07/2011 Anxiety 03/07/2011 CARDIOVASCULAR SCREENING; LDL GOAL LESS THAN 160 02/18/2010 Overview (02/18/2010): [place] 10-year CHD Risk Score: 1% (0 Total [...] on file Legal Sex Female 3:19 AM BACKUP OPERATOR Gender Identity Not on file Sexual [...] of Treatment Not on file Care Teams Transplant Immunologist Relationship Specialty Start Date End Date Mariangel Dickens PA-C PCP - General Physician Traveling Representative 01/18/15
--- OUTSIDE RECORDS SUMMARY | 2024-01-18 10:19 | XMS_ITS | Encounter Summary ---
Author Organization [facility] Address [address] [place] [address]. [place] [address] Care Team Providers Care Squad Leader Name Role Phone Min Napoles PA-C Primary Care Provider Mariangel Dickens PA-C Primary Care Provi chato Mariangel Dickens PA-C Unavailable + [phone] Mariangel Dickens PA-C Unavailable [phone] Encounter Details Date Type Department Care Team [...] on file Legal Sex Female 3:19 AM ZONING ASSISTANT Gender Identity Not on file Sexual Orientation Not on file documented as of this encounter Plan of Treatment Not on file documented as of this encounter Visit Diagnoses Not on filedocumented in this encounter Care Teams Squad Leader Relationship Specialty Start Date End Date Min Napoles PA-C [address] [address] PCP - General Family Practice 10/18/10 04/03/13 Mariangel Dickens PA-C [address] [address] PCP - General Physician Clicking Machine Operator 01/18/15 Mariangel Dickens PA-C [address] [place] [address] PCP - Assigned PCP 09/03/16 04/30/18 Mariangel Dickens PA-C [address] [place] [address] Assigned PCP 09/03/16 09/06/19 documented as of this encounter
--- OUTSIDE RECORDS SUMMARY | 2024-01-18 10:19 | XMS_ITS | Encounter Summary ---
Author Organization [facility] Address [address] [place] [address] Care Team Providers Care Lathing Supervisor Name Role Phone Te Jorge Primary Care [...] on filedocumented in this encounter Care Teams Lathing Supervisor Relationship Specialty Start Date End Date Te Jorge PCP - General 05/29/10 documented as of this encounter
--- OUTSIDE RECORDS SUMMARY | 2024-01-18 10:19 | XMS_ITS | Clinical Summary ---
Author Organization [facility] Address [address] [place] [address] Care Team Providers Care Plc Controls Engineer Name Role Phone Te Jorge Primary Care Provider Unavailabl e Source Comments You are receiving this document as you are listed as the primary care provider,follow-up provider, or the patient has been referred to you for consultation.This is in compliance with the Medicare and[facility] Health Systemcaid EHR Incentive Program,which states Providers who transition their patient to another setting of careor provider of care or refers their patient to another provider of care shouldprovide summary care record for each transition of care or referral. [facility] Allergies Active Allergy Reactions Criticality Noted Date [...] TOTAL AND HDL Routine 05/13/2001 4:31 PM ICE MAKER from Last 3 Months or Most Recently Relevant to Health Maintenance Results * Pap Smear (11/04/2003 2:44 PM CDT) PAP Smear Liquid Based SEE TEXT No normal range HP CONVERSION Comment: Patient: DANY BRICE CERVICAL CYTOLOGY REPORT Pathology # [id number] Date Obtained: Date Received: CYTOLOGIC IMPRESSION: Negative for intraepithelial lesion or malignancy. Fungal organisms identified. ADDITIONAL DATA LMP: 10-30-03,PREG CLINICAL HIST LIQUID BASED PAP CERVICAL SPECIMEN ADEQUACY: Satisfactory. ENDOCERVICAL CELLS: Present. Verified 11/13/03 by: JYO (electronic signature) 11/04/2003 2:44 PM CDT Gracy Gutierrez APRN, [facility] LAB_1 HP CONVERSION * HIV Antibody (11/04/2003 12:40 PM CDT) HIV 1/HIV 2 Non Reac Non Reac HP CONVERSION 11/04/2003 12:4 0 PM CDT Gracy Gutierrez APRN, CNM LAB_1 HP CONVERSION * (ABNORMAL) Cholesterol, Total and HDL (05/13/2001 4:31 PM ICE MAKER) Cholesterol/HDL Ratio Screen 2.3 No normal range HP CONVERSION Cholesterol 112(LL) 125 - 199 mg/dL HP CONVERSION HDL Cholesterol 49 40 - 60 mg/dL HP CONVERSION 05/13/2001 4:31 PM ICE MAKER Dany Huizar APRN, CNM LAB_1 HP CONVERSION from Last 3 Months or Most Recently Relevant to Health Maintenance Care Teams Plc Controls Engineer Relationship Specialty Start Date End Date Te Jorge PCP - General 05/29/10
--- OUTSIDE RECORDS SUMMARY | 2024-01-18 10:19 | XMS_ITS | Encounter Summary ---
Author Organization [facility] Address [address] [place] [address] Care Team Providers Care Planisher Name Role Phone Te Jorge Primary Care [...] on filedocumented in this encounter Care Teams Planisher Relationship Specialty Start Date End Date Te Jorge PCP - General 05/29/10 documented as of this encounter
--- OUTSIDE RECORDS SUMMARY | 2024-01-18 10:19 | XMS_ITS | Encounter Summary ---
Author Organization [facility] Address [address] [place] [address] Care Team Providers Care Pin Or Clip Fastener Name Role Phone Min Napoles PA-C Primary Care Provider Mariangel Dickens PA-C Primary Care Provi chato Mariangel Dickens PA-C Unavailable + [phone] Mariangel Dickens PA-C Unavailable + [phone] Encounter Details Date Type Department Care Team (Late st Contact Info) Description 10/31/2011 [facility] [address] [address] [facility] Social History Tobacco Use Types Packs/Day Years Used Date Smoking Tobacco: Never Smokeless Tobacco: Never Alcohol Use Standard Drinks/Week Comments Yes 0 (1 standard drink = 0.6 oz pur e alcohol) Comments No Sex and Gender Information Value Date Recorded Sex Assigned at Not on file Legal Sex Female 3:19 AM DIRECTOR OF EDUCATION Gender Identity Not on file Sexual Orientation Not on file documented as of this encounter Plan of Treatment Not on file documented as of this encounter Visit Diagnoses Not on filedocumented in this encounter Care Teams Pin Or Clip Fastener Relationship Specialty Start Date End Date Min Napoles PA-C [address] [address] PCP - General Family Practice 8/23/11 2/6/14 Mariangel Dickens PA-C [address] [address] PCP - General Physician Coater Brake Linings 01/18/15 Mariangel Dickens PA-C [address] [address] PCP - Assigned PCP 09/03/16 04/30/18 Mariangel Dickens PA-C [address] [address] Assigned PCP 09/03/16 09/06/19 documented as of this encounter
--- OUTSIDE RECORDS SUMMARY | 2024-01-18 10:19 | XMS_ITS | Encounter Summary ---
Author Organization [facility] Address [address] [place] [address] Care Team Providers Care Sludge Mill Operator Name Role Phone Te Jorge Primary [...] on filedocumented in this encounter Care Teams Sludge Mill Operator Relationship Specialty Start Date End Date Te Jorge PCP - General 05/29/10 documented as of this encounter
--- OUTSIDE RECORDS SUMMARY | 2024-01-18 10:19 | XMS_ITS | Encounter Summary ---
Author Organization [facility] Address [address] [place] [address] Care Team Providers Care Java Lead Name Role Phone Te Jorge Primary Care [...] on filedocumented in this encounter Care Teams Java Lead Relationship Specialty Start Date End Date Te Jorge PCP - General 05/29/10 documented as of this encounter
--- OUTSIDE RECORDS SUMMARY | 2024-01-18 10:19 | XMS_ITS | Encounter Summary ---
Author Organization [facility] Address [address] [place] [address] Care Team Providers Care Mechanical Planner Name Role Phone Te Jorge Primary Care [...] on filedocumented in this encounter Care Teams Mechanical Planner Relationship Specialty Start Date End Date Te Jorge PCP - General 05/29/10 documented as of this encounter
--- OUTSIDE RECORDS SUMMARY | 2024-01-18 10:19 | XMS_ITS | Encounter Summary ---
Author Organization [facility] Address [address] [place] [address]. [place] [address] Care Team Providers Care Assembly Machine Tender Name Role Phone Min Napoles PA-C Primary Care Provider OestrMariangel aguilar PA-C Primary Care Provi chato Mariangel Dickens PA-C Unavailable [phone] [phone] Mariangel Dickens PA-C Unavailable [phone] Reason for Visit * Reason Onset Date Comments Pt. Information/instruction 03/14/2013 Encounter Details Date Type Department Care Team (Late st Contact Info) Description 03/14/2013 My[facility] Medical Advice [address] [address] Min Napoles PA-C [address] [address] Pt. Information/instruct ion Social History Tobacco Use Types Packs/Day Years Used Date Smoking Tobacco: Never Smokeless Tobacco: Never Alcohol Use Standard Drinks/Week Comments Yes 0 (1 standard drink = 0.6 oz pur e alcohol) Comments No Sex and Gender Information Value Date Recorded Sex Assigned at Not on file Legal Sex Female 3:19 AM HIGH LIGHTER Gender Identity Not on file Sexual Orientation Not on file documented as of this encounter Plan of Treatment Not on file documented as of this encounter Visit Diagnoses Not on filedocumented in this encounter Care Teams Assembly Machine Tender Relationship Specialty Start Date End Date Min Napoles PA-C [address] [address] PCP - General Family Practice 10/18/10 04/03/13 Mariangel Dickens PA-C [address] [address] PCP - General Physician Packaging Associate 01/18/15 Mariangel Dickens PA-C [address] [facility] [address] [place], [place] [id number] PCP - Assigned PCP 09/03/16 04/30/18 Mariangel Dickens PA-C 480 [facility] [address] [place] [address] Assigned PCP 09/03/16 09/06/19 documented as of this encounter
--- OUTSIDE RECORDS SUMMARY | 2024-01-18 10:19 | XMS_ITS | Clinical Summary ---
Author Organization [facility] Address [address] [place] [address] Care Team Providers Care Computer Equipment Repairer Name Role Phone Mariangel Dickens PA-C Primary [...] ther diseases of nasal cavity and sinuses(478.19) [place] 1-2 sprays into both nostrils daily 16 [...] migh t be different from the original. http://ptrx.org/admin/[email or web address] Problem Noted Date Diagnosed Date Headache 06/08/2011 Overview (11/27/2014): Problem list name updated by automated process. Provider to review and confirm Problem list name updated by automated process. Provider to review Contraception 04/05/2011 Generalized anxiety disorder 03/07/2011 Anxiety 03/07/2011 CARDIOVASCULAR SCREENING; LDL GOAL LESS THAN 160 02/18/2010 Overview (02/18/2010): [place] 10-year CHD Risk Score: 1% (0 Total [...] on file Legal Sex Female 3:19 AM SCIENTIFIC RESEARCH ASSOCIATE Gender Identity Not on file Sexual Orientation [...] of Treatment Not on file Care Teams Computer Equipment Repairer Relationship Specialty Start Date End Date Mariangel Dickens PA-C PCP - General Physician Clearance Cutter 01/18/15
--- OUTSIDE RECORDS SUMMARY | 2024-01-18 10:19 | XMS_ITS | Encounter Summary ---
Author Organization [facility] Address [address] [place] [address] Care Team Providers Care Gut Sorter Name Role Phone Te Jorge Primary Care Provider Unavailabl e Encounter Details Date Type Department Care Team (Latest Contact Info) Description 09/13/1995 [place] [address] [place] [address] Social History Tobacco Use Types Packs/Day Years Used Date Smoking Tobacco: Never Assessed Sex and Gender Information Value Date Recorded Sex Assigned at Not on file Gender Identity Not on file Sexual Orientation Not on file documented as of this encounter Plan of Treatment Not on file documented as of this encounter Visit Diagnoses Not on filedocumented in this encounter Care Teams Gut Sorter Relationship Specialty Start Date End Date Te Jorge PCP - General 05/29/10 documented as of this encounter
--- OUTSIDE RECORDS SUMMARY | 2024-01-18 10:19 | XMS_ITS | Encounter Summary ---
Author Organization [facility] Address [address] [place] [address] Care Team Providers Care Call Center Analyst Name Role Phone Min Napoles PA-C Primary Care Provider OestrMariangel aguilar PA-C Primary Care Provi chato Mariangel Dickens PA-C Unavailable [phone] Mariangel Dickens PA-C Unavailable [phone] Reason for Visit * Reason Onset Date Comments MyChart Communication 02/15/2012 Encounter Details Date Type Department Care Team (Latest Contact Info) Description 02/15/2012 My[facility] Medical Advice [address] [address] Min Napoles PA-C [address] [address] MyChart Communication Social History Tobacco Use Types Packs/Day Years Used Date Smoking Tobacco: Never Smokeless Tobacco: Never Alcohol Use Standard Drinks/Week Comments Yes 0 (1 standard drink = 0.6 oz pur e alcohol) Comments No Sex and Gender Information Value Date Recorded Sex Assigned at Not on file Legal Sex Female 3:19 AM CYANIDE POT HARDENER Gender Identity Not on file Sexual Orientation Not on file documented as of this encounter Miscellaneous Notes * Telephone Encounter - Jessica Cartwright - 02/21/2012 1:25 PM CST Pt did start cycle, please see most recent [employer] message. Message to Ashley Cartwright, RN IDE POT HARDENER * Telephone Encounter - Soraya Washington - 02/16/2012 9:36 AM CST Reviewed MY Chart with clinic provider. Defer to PCP for BC restart. Message handled by Nurse Triage with [facility] - provider name: Parag Washington RN. . IDE POT HARDENER documented in this encounter Plan of Treatment Not on file documented as of this encounter Visit Diagnoses Not on filedocumented in this encounter Care Teams Call Center Analyst Relationship Specialty Start Date End Date Min Napoles PA-C [address] [address] PCP - General Family Practice 10/18/10 04/03/13 Mariangel Dickens PA-C [address] [address] PCP - General Physician Pcas 01/18/15 Mariangel Dickens PA-C [address] [place] [address] PCP - Assigned PCP 09/03/16 04/30/18 Mariangel Dickens PA-C [address] [place] [address] Assigned PCP 09/03/16 09/06/19 documented as of this encounter
--- OUTSIDE RECORDS SUMMARY | 2024-01-18 10:19 | XMS_ITS | Encounter Summary ---
Author Organization [facility] Address [address] [place] [address] Care Team Providers Care Basket Weaver Name Role Phone Te Jorge Primary Care Provider Unavailabl e Encounter Details Date Type Department Care Team (Latest Contact Info) Description 06/06/1995 Orders Only uLcia Santiago, ROPING TENDER, CUFF SETTER OVERLOCK Social History Tobacco Use Types Packs/Day Years Used Date Smoking Tobacco: Never Assessed Sex and Gender Information Value Date Recorded Sex Assigned at Not on file Gender Identity Not on file Sexual Orientation Not on file documented as of this encounter Plan of Treatment Not on file documented as of this encounter Visit Diagnoses Not on filedocumented in this encounter Care Teams Basket Weaver Relationship Specialty Start Date End Date Te Jorge PCP - General 05/29/10 documented as of this encounter
--- OUTSIDE RECORDS SUMMARY | 2024-01-18 10:20 | XMS_ITS | Clinical Summary ---
Author Organization [facility] [place], [place] [address] Care Team Providers Care Rubber Boots And Shoes Repairer Name Role Phone Clinic, No Pcp Or [...] Comments Blood Pressure 126/80 01/15/2017 11:36 AM PIN OR CLIP FASTENER Pulse 76 01/15/2017 11:36 AM PIN OR CLIP FASTENER Temperature 37.2 C (98.9 F) 12/16/2016 3:41 PM CDT Respiratory Rate 18 12/16/2016 3:41 PM CDT Oxygen Saturation 99% 12/16/2016 3:41 PM CDT RA Inhaled Oxygen Concentration - - Weight 79 kg (174 lb 1.6 oz) 01/15/2017 11:36 AM PIN OR CLIP FASTENER Height 170.2 cm (5' 7) 01/15/2017 11:36 AM PIN OR CLIP FASTENER Body Mass Index 27.27 01/15/2017 11:36 AM PIN OR CLIP FASTENER Plan of Treatment Health Maintenance Due Date [...] * ANTI HCV (12/16/2016 4:35 PM CDT) [facility] HEPATITIS C ANTIBODY Non-Reacti ve Non-Reacti ve 12/17/2016 6:54 PM CDT [facility] Blood BLOOD SPECIMEN / Unknown Venipuncture / Unknown 12/16/2016 4:35 PM CDT 12/16/2016 4:35 PM CDT Narrative [facility] - 12/17/2016 6:54 PM CDT Antibodies to HCV not detected; does not exclude the possibility of exposure to HCV. Shawnee Leroy MD SEND OUTS [facility] [address] [place] [address], [place] * ANTI HIV 1/2 (12/16/2016 4:35 PM CDT) HIV-1/HIV-2 ANTIBODY Non-Reacti ve Non-Reacti ve 12/17/2016 6:58 PM CDT [facility] Blood BLOOD SPECIMEN / Unknown Venipuncture / Unknown 12/16/2016 4:35 PM CDT 12/16/2016 4:35 PM CDT Narrative [facility] - 12/17/2016 6:58 PM CDT HIV-1 p24 and HIV-1/HIV-2 Ab not detected Shawnee Leroy MD SEND OUTS [facility] [address] [place] [address], [place] from Last 3 Months or Most Recently Relevant to Health Maintenance Insurance Payer Benefit Plan / Group Subscriber ID Effective Dates Phone Address Type [facility] [id number] 2019-Present [address] [place] [address] Care Teams Rubber Boots And Shoes Repairer Relationship Specialty Start Date End Date Clinic, No Pcp Or . PCP - General 12/16/16
--- OUTSIDE RECORDS SUMMARY | 2024-01-18 10:20 | XMS_ITS | Encounter Summary ---
Author Organization [facility] Address [address] [place] [address] Care Team Providers Care Tennis Desk Team Member Name Role Phone Te Jorge Primary Care Provider Unavailabl e Encounter Details Date Type Department Care Team (Latest Contact Info) Description 02/27/1994 [place] [address] [place] [address] Social History Tobacco Use Types Packs/Day Years Used Date Smoking Tobacco: Never Assessed Sex and Gender Information Value Date Recorded Sex Assigned at Not on file Gender Identity Not on file Sexual Orientation Not on file documented as of this encounter Plan of Treatment Not on file documented as of this encounter Visit Diagnoses Not on filedocumented in this encounter Care Teams Tennis Desk Team Member Relationship Specialty Start Date End Date Te Jorge PCP - General 05/29/10 documented as of this encounter
== END 2024-01-18 10:17 | disposition home or self-care (01) ==
LOC: MAMMO 10:16
PROVIDERS: PCP Physician Assistant Medical; Visit Provider Physician Assistant Medical
DX: Z12.31 Encounter for screening mammogram for malignant neoplasm of breast (principal)
CPT/HCPCS: 77063; 77067

== ENCOUNTER 2024-11-10 14:01 | Outpatient (CLI) | payer BC, SELFPAY | END 2024-11-10 14:02 | disposition home or self-care (01) | LOC: NFLDREF 11-16 03:18 | PROVIDERS: PCP Physician Assistant Medical; Referring Provider Physician Assistant Medical; Visit Provider Physician Assistant Medical | DX: N30.00 Acute cystitis without hematuria (principal) | CPT/HCPCS: 87086 ==

== ENCOUNTER 2024-12-03 09:02 | Outpatient (CLI) | payer BC, SELFPAY | END 2024-12-03 09:03 | disposition home or self-care (01) | LOC: NFLDREF 12-05 17:35 | PROVIDERS: PCP Physician Assistant Medical; Referring Provider Physician Assistant Medical; Visit Provider Physician Assistant Medical | DX: I10 Essential (primary) hypertension (principal) | CPT/HCPCS: 80053; 80061; 84443 ==